=== PATIENT | female | born 1975 | race African-American/Black ===

== ENCOUNTER 2025-01-23 19:45 | Emergency (ER) | payer OTHER, SELFPAY ==
--- NOTE | 2025-01-23 19:49 | ED_ITS ---
HPI - Allergic Reaction General Stated complaint: Allergic to shellfish reaction Time Seen by Provider: 01/23/25 19:56 Mode of arrival: ambulatory Limitations: no limitations History of Present Illness HPI narrative: 49-year-old female presents with concern for allergic reaction. She reports around 430 this afternoon she had possible exposure to shellfish at a restaurant. She has an allergy to shellfish. She denies any history of sharon phylactic reaction to shellfish, but she was told her symptoms could worsen with further exposures. She reports she feels weird, her throat feels swollen and she feels dizzy. She denies any tongue swelling. She denies rash, nausea, vomiting, fever. Patient is in no distress. MD complaint: allergic reaction Related Data Home Medications ?Medication ?Instructions ?Recorded ?Confirmed ?Last Taken ?Type escitalopram oxalate 10 mg tablet mg 01/23/25 Unknown History Allergies Allergy/AdvReac Type Severity Reaction Status Date / Time No Known Allergies Allergy Verified 01/23/25 19:58 Review of Systems Review of Systems: CONSTITUTIONAL: Denies malaise, chills, sweats, or fever. EYES: Denies visual changes, redness, or discharge. ENT: Denies rhinorrhea, congestion, sore throat. Reports her throat feels swollen CARDIOVASCULAR: Denies chest pain, palpitations, or edema. RESPIRATORY: Denies cough or dyspnea. GASTROINTESTINAL: Denies nausea, vomiting, diarrhea SKIN: Denies rash or itching. NEUROLOGIC: Denies numbness, weakness, or headache. Reports dizziness All systems reviewed & are unremarkable except as noted in HPI and below PMFSH Comments At time of signature, agree with nursing past medical, surgical, social and family history. There is no relevant family history pertinent to the presenting complaint Exam Narrative: GENERAL: Well-appearing, well-nourished, and in no acute distress. HEAD: Normocephalic EYES: PERRLA, sclera clear, and EOMI. ENT: Nares clear, turbinates pink, no rhinorrhea or epistaxis. Mucous membranes moist. TM pearly reis with sharp light reflex bilaterally; no tragal tenderness. Oropharynx without erythema or lesions. No edema, angioedema noted. Tonsils not enlarged and without exudate. NECK: Supple. No lymphadenopathy. CHEST: No respiratory distress. Clear to auscultation. No bony deformities, no asymmetry. Speaks in full sentences. HEART: Regular rate and rhythm. No murmur heard. Normal peripheral pulses. SKIN: Warm, dry, no visible rash. NEURO: Alert and oriented x3. No focal deficits. Cranial nerves II through XII grossly intact PSYCH: Normal mood and affect Course Course Emergency Course: Patient is aware of diagnosis, understands and agrees to treatment plan. Anticipatory guidance given. Patient agrees to follow-up as directed and is aware of reasons to seek care at the emergency department. Portions of this record may have been created with voice recognition software Level of Care: Express Care Visit Vital Signs Vital signs: Reviewed. MDM - Allergic Reaction MDM Narrative Medical decision making narrative: No soft palate or uvula edema, no tongue or lip edema or other mucosal involvement, no respiratory compromise, no stridor, no wheezing, no wheezing, no history of syncope, no hypotension, no nausea, vomiting, or diarrhea. Critical Care Time Critical Care Time Critical Care Time: No Discharge Plan Discharge Clinical Impression: Allergy Patient Disposition: Home Condition: Stable Instructions: Food Allergy (ED) Additional Instructions: You may take 1-3 tabs of Benadryl (diphenhydramine) every 6 hours - this medicine may make you tired, so know how it affects you before you drive, work, make important decisions. You may also take a non-drowsy antihistamine such as Zyrtec or Citlalli once daily; you may double this dose for maximum effect. Medications that block stomach acid, such as Pepcid, also block histamine and can be helpful; take this once daily. If you have difficulty breathing, wheezing, swollen lips, swollen tongue, nausea, vomiting, diarrhea, pass out, have fever, itchy tongue, give difficulty swallowing please call 911 or go to the emergency room. Patient Language: Hungarian Follow-up/Referrals: UNKNOWN,DOCTOR [Non-Staff] - Time of Disposition: 20:03
--- OUTSIDE RECORDS SUMMARY | 2025-01-23 19:52 | XMS_ITS | Clinical Summary ---
Author Organization [facility] rofessional Office [place] Address [address] [place] [id number] Care Team Providers Care Chalk Cutter Name Role Phone Saud Valero MD Primary Care Provider [phone] Allergies Active Allergy Reactions Criticality Noted Date Comments Bupropion Other (See Comments) 03/29/2022 Horrible thoughts and made her feels more anxious Gluten Diarrhea,Other (See Comments) Low 09/25/2018 Gluten intolerance Latex Rash Medium 12/08/2022 Shellfish Containing Products Swelling,Anaphylaxis High 09/25/2018 Wheat Dextrin Abdominal Pain Low 09/23/2024 Medications albuterol sulfate HFA 90 mcg/actuation aerosol inhaler Take 2 Puffs by inhalation every 6 hours as needed for Shortness of Breath. 8.5 Gram 3 07/25/2023 6:09 PM SHRIMP PEELER 06/26/20 23 Active fexofenadine-pseu doephedrine SR 12 hour (JAMES-D) 60-120 mg tablet Take 1 Tablet by mouth 2 times daily as needed for Allergies or Congestion. 30 Tablet 09/23/19 25 Active fluticasone propionate (FLONASE) 50 mcg/spray [place], Suspension nasal inhaler Administer 2 Sprays in each nostril daily. 16 Gram 1 11/18/2024 6:52 PM CDT 09/23/19 25 Active escitalopram oxalate (LEXAPRO) 10 mg tablet Take 1 Tablet (10 mg) by mouth daily. 100 Tablet 3 01/16/2025 5:25 PM CDT 10/07/19 25 Active amphetamine-dextr oamphetamine (Adderall XR) 20 mg Extended Release 24 hour capsuleIndication s:Attention deficit hyperactivity disorder (ADHD), unspecified ADHD type Take 1 Capsule (20 mg) by mouth daily in the morning. Max Daily Amount: 20 mg 30 Capsule 11/18/2024 6:52 PM CDT 11/15/19 25 Active tirzepatide, weight loss, (Zepbound) 12.5 mg/0.5 mL Pen InjectorIndicatio ns:Obesity, unspecified class, unspecified obesity type, unspecified whether serious comorbidity present,ANTOINE (obstructive sleep apnea) Inject 0.5 mL (12.5 mg) by subcutaneous injection every 7 days. 2 mL 1 01/24/20 25 Active Active Problems Problem Noted Date Diagnosed Date Spinal stenosis 07/23/2022 Marijuana smoker 05/19/2022 ADD (attention deficit disorder) 03/30/2022 History of tobacco use 03/29/2022 Overview (03/29/2022): 20 years Smoking Pack per week, quit In 2017 History of prediabetes 03/29/2022 ANTOINE (obstructive sleep apnea) 03/29/2022 Perimenopausal symptom 03/29/2022 Environmental and seasonal allergies 03/29/2022 Iron deficiency anemia 03/29/2022 History of IBS 03/29/2022 Family history of autoimmune disorder 03/29/2022 Nausea with vomiting 02/15/2006 Toxic effect of venom(989.5) 04/10/2005 Cellulitis and abscess of leg, except foot 04/10 Obesity, unspecified 09/20/2004 Urinary tract infection, site not specified 08/09 Encounters Date Type Department Care Team Description 01/23/2025 2:00 PM CDT Office Visit [facility] [place] [id number] [facility] [address] [place] [phone] Ilene Cline FNP Other fatigue (Primary Dx); Elevated LDL cholesterol level; Obesity, unspecified class, unspecified obesity type, unspecified whether serious comorbidity present; ANTOINE (obstructive sleep apnea) 01/21/2025 External Device Data STL ABSTRACTION Provider, Abstract 11/14/2024 Refill [facility] [place] [address] [facility] [address] [place] [phone] Saud Valero MD Class 2 obesity with body mass index (BMI) of 38.0 to 38.9 in adult, unspecified obesity type, unspecified whether serious comorbidity present; Attention deficit hyperactivity disorder (ADHD), unspecified ADHD type 11/11/2024 External Device Data STL ABSTRACTION Provider, Abstract from Last 3 Months Immunizations Immunization Administration Dates Next Due (ADACEL/BOOSTRIX)(10 YR UP) TDAP VACCINE, 0.5ML, IM 04/30/2015 INFLUENZA VACCINE QUADRIVALENT 6 MOS UP PF IM Family History Medical History Relation Name Comments Diabetes Father Moiz Rodrigez Hypertension Mother Marguerite Gonzales Colon Cancer Neg Hx Relation Name Status Comments Father Moiz Rodrigez Alive Mother Marguerite Gonzales Alive Social History Tobacco Use Types Packs/Day Years Used Date Smoking Tobacco: Former Cigarettes 0.5 20 0 09/10/1996 - 09/10/2016 Cigars Passive Smoke Exposure: Never Smokeless Tobacco: Never Tobacco Cessation:Counseling Given: No Alcohol Use Standard Drinks/Week Comments Yes 2 (1 standard drink = 0.6 oz pur e alcohol) Comments No Sex and Gender Information Value Date Recorded Sex Assigned at Female 07/31/2023 11:17 AM SHRIMP PEELER Legal Sex Female 4:16 AM SHRIMP PEELER Gender Identity Female 07/31/2023 11:17 AM SHRIMP PEELER Sexual Orientation Not on file Last Filed Vital Signs Vital Sign Reading Time Taken Comments Blood Pressure 112/60 01/23/2025 2:15 PM CDT Pulse 77 01/23/2025 2:15 PM CDT Temperature 36.8 C (98.3 F) 01/23/2025 2:15 PM CDT Respiratory Rate 18 01/23/2025 2:15 PM CDT Oxygen Saturation 99% 01/23/2025 2:15 PM CDT Inhaled Oxygen Concentration - - Weight 98 kg (216 lb) 01/23/2025 2:15 PM CDT Height 160 cm (5' 3) 01/23/2025 2:15 PM CDT Body Mass Index 38.26 01/23/2025 2:15 PM CDT Plan of Treatment Health Maintenance Due Date Last Done Comments HEPATITIS B VACCINES (1 of 3 - 19+ 3-dose series) 1993 HPV/Cotest (21-29) 1995 CERVICAL CANCER SCREENING 2004 HPV/Cotest (30-65) 2004 PAP SMEAR 2004 FIT-DNA Q 3 years 2019 FIT/FOBT Q 1 year 2019 Preventative Visit- Commercial 07/09/2024 0 01/22/2024, 12/07/2022, 07/04/2022, Additional history exists ZOSTER VACCINE (1 of 2) 2024 INFLUENZA VACCINE (#1) 2025 04/30/2015 DTAP/TDAP/TD VACCINES (2 - T d or Tdap) 04/30/2025 04/30/2015 BREAST CANCER SCREENING 09/25/2025 09/26/19 25, 11/15/2023, 11/15/2023, Additional history exists Pre-Diabetes and Diabetes Screening 12/08/2025 12/08/2022, 07/04/2022 Flex Sig/CT Colonography Q 5 years 03/26/20282022, 03/26/2023 COLORECTAL SCREENING 10/26/2032 10/26/2022, 10/27/19 Colorectal Cancer Screening 10/26/2032 Procedures Procedure Name Priority Date/Time Associated Diagnosis Comments MAMMO 3D SHAUN DIAGNOSTIC BILAT W OR WO CAD Routine 09/25/2024 12:30 PM CDT Family history of breast cancer Breast cancer screening by mammogram Lump in upper inner quadrant of left breast FLEXIBLE SIGMOIDOSCOPY REPORT 03/26/2023 1:23 PM CDT HEMOGLOBIN A1C Routine 12/08/2022 1:01 PM CDT Prediabetes COLONOSCOPY REPORT 10/26/2022 2: 55 PM CDT from Last 3 Months or Most Recently Relevant to Health Maintenance Results * MAMMO 3D SHAUN DIAGNOSTIC BILAT W OR WO CAD (09/25/2024 12:30 PM CDT) Anatomical Region Laterality Modality Breast Bilateral Mammography 09/25/2024 12:3 0 PM CDT Impressions 09/25/2024 12:40 PM CDT IMPRESSION: 1. No suspicious findings are identified in either breast. Continued monthly breast examination and clinical follow-up is recommended. Any further management at this time should be based on clinical assessment. 2. Routine screening mammography is recommended in 1 year. OVERALL FINAL ASSESSMENT: BI-RADS CATEGORY 1 - Negative. The patient was notified of the findings and recommendations at the time of the examination. DICTATION LOCATION: [facility] Narrative 09/25/2024 12:40 PM CDT EXAMINATION: MAMMO 3D SHAUN DIAGNOSTIC BILAT W OR WO CAD DATE: 09/25/2024 12:30 PM HISTORY: 49-year-old woman comes in today for evaluation of a lump. The patient reports she can no longer feel the lump. The patient is currently asymptomatic. COMPARISON: Screening mammograms dated 11/15/2023, 11/10/2022. TECHNIQUE: Bilateral diagnostic mammogram was performed. Full field digital mammograms, and digital breast tomosynthesis with C-view performed. Examination is read in conjunction with computer aided detection. BREAST COMPOSITION: The breasts are heterogeneously dense, which may obscure small masses. FINDINGS: There is no new suspicious finding in either breast on mammogram. Computer aided detection was used in the interpretation of this examination. us Saud Valero MD MAMMO ORDERABLES Final Res ult * FLEXIBLE SIGMOIDOSCOPY REPORT (03/26/2023 1:23 PM CDT) Narrative Procedure Note Susan Ramirez MD - 03/26/2023 1:23 PM CDT [facility] Patient Name: Shimon Jesus Procedure Date: 03/26/2023 Date of : 1975 Attending MD: Susan Ramirez MD, Procedure: Flexible Sigmoidoscopy Indications: Follow up of lipoma Providers: Susan Ramirez MD Referring MD: Medicines: Monitored Anesthesia Care Complications: No immediate complications. Estimated blood loss: Minimal. Procedure: Informed consent was obtained for the procedure, including moderate sedation after risks were discussed. Based on the pre-procedure assessment, including review of the patient's medical history, medications, allergies, and review of systems, the patient was deemed to be an appropriate candidate for sedation. A timeout was performed. Continuous ECG monitoring, pulse oximetry, blood pressure monitoring, and direct observation were performed. The Colonoscope was introduced through the anus and advanced to the sigmoid colon. The flexible sigmoidoscopy was accomplished without difficulty. The patient tolerated the procedure fairly well. The quality of the bowel preparation was fair. Estimated Blood Loss: Estimated blood loss was minimal. Findings: The perianal and digital rectal examinations were normal. There was a small lipoma, 20 mm in diameter, in the proximal sigmoid colon. Biopsies were taken with a cold forceps for histology. Multiple small-mouthed diverticula were found in the sigmoid colon. Impression: - Preparation of the colon was fair. - Small lipoma in the proximal sigmoid colon. Biopsied. - Diverticulosis in the sigmoid colon. Recommendation: - Discharge patient to home (ambulatory). - High fiber diet. - Await pathology results. Susan Ramirez MD 03/26/2023 1:23:23 PM Number of Addenda: [address]; [place] [address] Susan Ramirez MD GI PROCEDURE ORDERA BLES Final Result * HEMOGLOBIN A1C (12/08/2022 1:01 PM CDT) HEMOGLOBIN A1C 5.6 <5.7 % 12/08/2022 2:02 PM CDT [facility] Instant Information [facility] EST. AVG GLUCOSE, A1C 114 mg/dL 12/08/2022 2:02 PM CDT [facility] Instant Information [facility] Blood Venipuncture / Unknown 12/08/2022 1:01 PM CDT 12/08/2022 1:39 PM CDT Narrative [facility] Instant Information [facility] - 12/08/2022 2:02 PM CDT HGB A1C INTERPRETATION NORMAL: <5.7% PRE-DIABETES: 5.7 - 6.4% DIABETES: 6.5% OR GREATER Saud Valero MD CHEMISTRY ORDERABLES Final Result [facility] Instant Information [facility]# [id number] [address] [place] [address] * COLONOSCOPY REPORT (10/26/2022 2:55 PM CDT) Narrative Procedure Note Zee Du MD - 10/26/2022 2:54 PM CDT [facility] Patient Name: Shimon Jesus Procedure Date: 10/26/2022 Date of : 1975 Attending MD: Zee Du MD, Procedure: Colonoscopy Indications: Iron deficiency anemia Providers: Zee Du MD Referring MD: Saud Valero MD Medicines: Monitored Anesthesia Care Complications: No immediate complications. Procedure: Informed consent was obtained for the procedure, including moderate sedation after risks were discussed. Based on the pre-procedure assessment, including review of the patient's medical history, medications, allergies, and review of systems, the patient was deemed to be an appropriate candidate for sedation. A timeout was performed. Continuous ECG monitoring, pulse oximetry, blood pressure monitoring, and direct observation were performed. The scope was introduced through the anus and advanced to the cecum, identified by appendiceal orifice and ileocecal valve. The colonoscopy was performed without difficulty. The patient tolerated the procedure well. The quality of the bowel preparation was good. Estimated Blood Loss: Estimated blood loss: none. Findings: A benign appearing submucosal mass (approximately 3-4 cm in diameter) was found in the sigmoid. Appearance most consistent with lipoma. There was a punctate area of ulceration at top of mass. Positive pillow sign. Biopsied multiple times but unable to definitively see fat cells/droplets. Biopsies were taken with a cold forceps for histology. Folds distal to benign appearing mass were tattooed x 2 with 1.4 mL of Spot (carbon black). Non-bleeding internal hemorrhoids were found during retroflexion and during digital exam. The hemorrhoids were mild. The exam was otherwise normal throughout the examined colon. Impression: - Benign-appearing submucosal tumor in the sigmoid colon. Tattooed. Biopsied. - Non-bleeding internal hemorrhoids. Recommendation: - Await pathology results. - If biopsies non-diagnostic, I will likely refer to colorectal surgery. It is possible that a small amount of chronic blood loss is occuring due to the size of this mass and small area of ucleration. - Repeat endoscopy timing pending path results. - Avoid NSAID medications. Zee Du MD 10/26/2022 2:53:57 PM This report has been signed electronically. Number of Addenda: [address]; [place] [address] Zee Du MD GI PROCEDURE ORDERABLES Final Result from Last 3 Months or Most Recently Relevant to Health Maintenance Insurance [employer] CHOICE POS II [employer]ET[employer] OPEN CHOICE PPO RX [employer] (INTERNAL) [facility] [employer] * Guarantor: [facility]LD [facility]-OCC MED [facility] (OM) Account Type Relation to Patient Date of Phone Billing Address Corporate Other [address] [facility] [address] [place] [address] Advance Directives For more information, please contact: [phone] * Full Code (Latest Code Status on File) Date Activated Date Inactivated Comments 03/26/2023 12:07 PM 03/26/2023 4:27 PM * Full Code Date Activated Date Inactivated Comments 01/01/2023 7:48 AM 01/02/2023 2:45 PM * Full Code Date Activated Date Inactivated Comments 01/01/2023 7:28 AM 01/01/2023 7:48 AM * Full Code Date Activated Date Inactivated Comments 10/26/2022 12:53 PM 10/26/2022 6:41 PM Care Teams Chalk Cutter Relationship Specialty [place] [id number] [facility] [address] [place] [id number] PCP - General Internal Medicine 03/29/22
--- OUTSIDE RECORDS SUMMARY | 2025-01-23 19:52 | XMS_ITS | Clinical Summary ---
Author Organization [facility] Address [facility] [place] [address] Care Team Providers Care Local Company Tanker Driver Name Role Phone Saud Valero MD Primary Care Provider [phone] [phone] Allergies Active Allergy Reactions Criticality Noted Date Comments Gluten Other (See comments) Low 11/29/2020 Gluten intolerance Other Anaphylaxis High 09/25/2018 Shellfish Containing Products Swelling Medium 11/29/2020 Medications cetirizine (ZyrTEC) 10 mg tablet TK 1 T PO D 0 Active aspirin 81 mg enteric coated tablet Take 81 mg by mouth daily Active albuterol HFA (PROVENTIL HFA,VENTOLIN HFA,PROAIR HFA) 90 mcg/actuation inhaler INHALE 2 PUFFS BY MOUTH EVERY 6 HOURS 1 Active fluticasone propionate (FLONASE) 50 mcg/actuation nasal spray Administer 2 sprays into each nostril daily 48 g 3 1 Active buPROPion SR (ZYBAN) 150 mg 12 hr tabletIndicatio ns:History of ADHD Take 1 tablet (150 mg total) by mouth 2 (two) times a day 60 tablet 1 2 Active escitalopram (LEXAPRO) 10 mg tabletIndicatio ns:Anxiety TAKE 1 TABLET(10 MG) BY MOUTH DAILY 90 tablet 2 2 Active metFORMIN (GLUCOPHAGE) 500 mg tablet Take 1 tablet (500 mg total) by mouth daily with breakfast 90 tablet 1 2 Active Ozempic 1 mg/dose (4 mg/3 mL) pen injector injection INJECT 0.5MG UNDER THE SKIN ONCE WEEKLY FOR 4 WEEKS, THEN INCREASE TO 1MG UNDER THE SKIN ONCE WEEKLY 9 mL [address] (PROTONIX) 40 mg EC tablet Take 1 tablet (40 mg total) by mouth daily 90 tablet 2 Active albuterol HFA (PROVENTIL HFA,VENTOLIN HFA,PROAIR HFA) 90 mcg/actuation inhaler Inhale 2 puffs 4 (four) times a day for 5 days ON SCHEDULE FOR FIRST 5 DAYS,AFTER 5 DAYS USE IT NEEDED FOR WHEEZING/ SHORTNESS OF BREATH 18 g 3 Active metoclopramide (REGLAN) 10 mg tablet Take 1 tablet (10 mg total) by mouth 2 (two) times a day 10 tablet [address] (PROTONIX) 40 mg EC tablet Take 1 tablet (40 mg total) by mouth daily 30 tablet 3 Active Active Problems Problem Noted Date Diagnosed Date Prediabetes 11/17/2021 Morbid obesity with BMI of 45.0-49.9, adult 0 09/2021 Abdominal pain 12/19/2020 Assessment & Plan (12/19/2020 3:03 PM CDT): Upper abdominal pain. Associated with tenderness. The patient recently had elevated amylase but lipase was not checked. The epigastric pain and tenderness may be due to uncontrolled esophageal reflux disease, gastric ulcer, duodenal ulcer, pancreatitis or less likely gallbladder disease. Odynophagia 12/17/2020 Assessment & Plan (12/19/2020 3:02 PM CDT): New. Symptoms worsening. May have esophageal ulcer, or opportunistic infection of the esophagus such as fungal or viral infection. Esophagogastroduodenoscopy is recommended and scheduled for direct visualization and to guide therapy. Dysphagia 11/29/2020 Assessment & Plan (12/19/2020 2:55 PM CDT): Recurrent. She recalls having endoscopy with dilation in the past. She may have Schatzki's ring, esophageal stricture or dysmotility. I will obtain and review previous endoscopy report from the outpatient surgery center. Esophagogastroduodenoscopy with possible dilation is scheduled. Gastroesophageal reflux disease 11/29/2020 Assessment & Plan (12/19/2020 2:55 PM CDT): Moderately severe symptoms. Symptoms are worsening despite the patient being on pantoprazole. Esophagogastroduodenoscopy is recommended. She was advised to continue pantoprazole and also follow anti-reflux measures. Anxiety 11/29/2020 History of COVID-19 11/29/2020 Palpitations 11/29/2020 Shortness of breath 11/29/2020 Obesity, unspecified 09/20/2004 Resolved Problems Problem Noted Date Diagnosed Date Resolved Date Cellulitis and abscess of leg, except foot 04/10/2005 11/29/2020 Toxic effect of venom 04/10/20052020 Immunizations Immunization Administration Dates Next Due Influenza, Quadrivalent, Spl it, Preservative Free, Intramuscular 04/30/2015 Influenza, Unspecified 05/04/2021(Deferred: Martha ent Refused) Tdap 04/30/2015 Surgical History Surgery Date Site/Laterality Comments OTHER SURGICAL HISTORY Fibroids: Mymomectomy ESOPHAGUS SURGERY 07/09/2006 - 07/08/2007 esophageal dilation UTERINE FIBROID SURGERY Medical History Medical History Date Comments Hx Other Medical Fibroids; Comme nts: YEB 01/26/2015 - Hx Other Medical prediab; Commen ts: YEB 01/26/2015 - Anxiety GERD (gastroesophageal reflux disease) Cellulitis and abscess of le g, except foot 04/10/2005 Toxic effect of venom 04/10/2005 Ovarian cyst Family History Medical History Relation Name Comments Alcohol abuse Father Diabetes type II Father Diabetes me llitus type 2; Hypertension Mother Lupus Sister Lupus erythemat osus; Relation Name Status Comments Father Alive Mother Alive Sister Alive Social History Tobacco Use Types Packs/Day Years Used Date Smoking Tobacco: Former Cigarettes 0.3 15.6 0 11/29/2000 - 2016 Smokeless Tobacco: Never Alcohol Use Standard Drinks/Week Comments Yes 0 (1 standard drink = 0.6 oz pur e alcohol) AUDIT-C Answer Date Recorded Q1: How often do you have a drink containing alc ohol? Monthly or less 12/21/2020 Q2: How many drinks containi ng alcohol do you have on a typical day when you are drinking? 1 or 2 12/21/2020 Q3: How often do you have si x or more drinks on one occasion? Never 12/21/2020 PHQ-2 Answer Date Recorded PHQ-2 Total Score (If total score is 3 or more points, staff should administer the PHQ-9) 0 11/02/2021 Personal Safety Answer Date Recorded Have you ever been in or are you currently in a harmful physical or emotional relationship or is someone making you feel afraid or unsafe? Denies 07/06/2023 Comments No Sex and Gender Information Value Date Recorded Sex Assigned at Not on file Legal Sex Female 9:15 AM LIFE CARE PLANNER Gender Identity Not on file Sexual Orientation Not on file Obstetrics History Last Filed Vital Signs Vital Sign Reading Time Taken Comments Blood Pressure 126/75 07/07/2023 4:00 AM LIFE CARE PLANNER Pulse 65 07/07/2023 5:30 AM LIFE CARE PLANNER Temperature 36.2 C (97.2 F) 07/06/2023 8:19 PM LIFE CARE PLANNER Respiratory Rate 16 07/07/2023 4:00 AM LIFE CARE PLANNER Oxygen Saturation 100% 07/07/2023 5:30 AM LIFE CARE PLANNER Inhaled Oxygen Concentration - - Weight 107 kg (236 lb) 06/29/2022 10:04 AM LIFE CARE PLANNER Height 160 cm (5' 3) 04/27/2022 9:25 AM CDT Body Mass Index 41.81 04/27/2022 9:25 AM CDT Plan of Treatment Health Maintenance Due Date Last Done Comments Cervical Cancer Screening 1974 Colon Cancer Screening-Colonoscopy 1975 Hepatitis C Screening 1974 Hepatitis B Screening 1992 Regular Well Visit/Exam 18-64 05/03/2022 05/03/2021 Depression Screening 11/02/2022 11/02/2021, 07/11/2021, 12/27/2020, Additional history exists Zoster Vaccine (1 of 2) 2024 Breast Cancer Screening-Mammogram 11/14/2024 11/15/2023, 11/10/2022, 11/10/2022, Additional history exists Influenza Vaccine (#1) 2025 04/30/2015 DTaP/Tdap/Td Vaccine (2 - Td or Tdap) 04/30/2025 04/30/2015 Pneumococcal vaccine <65 Aged Out No longer eligible based on patient's age to complete this topic Procedures Procedure Name Priority Date/Time Associated Diagnosis Comments SCREENING MAMMOGRAM BILATERAL W STEWART Schedule Routine, Read Routine (OP Routine) 11/15/2023 9:30 AM CDT Screening mammogram for breast cancer from Last 3 Months or Most Recently Relevant to Health Maintenance Results * Screening Mammogram Bilateral W Stewart (11/15/2023 9:30 AM CDT) Anatomical Region Laterality Modality Breast Bilateral Mammography Narrative 11/15/2023 4:04 PM CDT Examination: Screening Mammogram Bilateral W Stewart: 11/15/23 Clinical: Screening mammogram for breast cancer. Prior Study Comparisons: Comparison was made to the prior available relevant studies at the time of interpretation. Findings: Bilateral No significant masses, malignant type calcifications, skin thickening, nipple retraction, or significant lymphadenopathy is noted in either breast. The CAD review showed no significant findings. The breasts are heterogeneously dense, which may obscure small masses. The patient will be notified of results by letter. Impression: BI-RADS ATLAS category (overall): 2 - Benign There is no mammographic evidence of malignancy. Routine Screening Mammogram in 1 Yr is recommended for bilateral Overall Assessment: 2 - Benign Saud Valero MD IMG MAMMO PROCEDURES Thao l Result from Last 3 Months or Most Recently Relevant to Health Maintenance Insurance [facility] HMO/POS [facility] [place] [address] [id number] [employer] HMO/[place] [facility] [id number] Care Teams Local Company Tanker Driver Relationship Specialty [place] [address] [address] PCP - General Internal Medicine 11/03/22
--- OUTSIDE RECORDS SUMMARY | 2025-01-23 19:52 | XMS_ITS ---
Author Organization [facility] Address [address] [place] [address] Care Team Providers Care Geomagnetician Name Role Phone Lili Orellana Primary Care Provider Michael Carpenter [phone] REASON FOR VISIT Swollen lymph nodes, weakness, exhaustion, stomach pain Encounters Encounter Location Date Provider Diagnosis [place], [place] [address] [place] [address] 08/09/2023 Michael Carpenter Plan Of Treatment No Information Progress Notes * YONNY MCDONALD LDOB: [birth year] (49 yo F)Acc No.[id number]:08/09/2023 Progress Note - Acute Patient: YONNY TUCKER Appointment Provider: ROSEANNE Gimenez :1975 A ge:47 Y S ex:Female Date:08/09/2023 External Visit ID:[id number] Address:[address] [place], [place] [id number] Pcp:Lili Orellana Subjective: * Chief Complaints: * 1 . Swollen lymph nodes, weakness, exhaustion, stomach pain. * Active Problem List J30.9 Allergic rhinitis, u nspecified seasonality, unspecified trigger Modified On:11/22/2023W/U Status:confirmed E66.9 Obesity (BMI 30.0-34 .9) Modified On:11/22/2023W/U Status:confirmed * Medical History: Objective: * Vitals: Assessment: Plan: * Treatment: * * Electronic signature of ROSEANNE Gabriel on 01/23/2025 at 04:25 PM CDT Sign off status: Pending * Appointment Provider: ROSEANNE Gimenez Date: 0 08/09/2023 Generated for José Miguel jimenez/Kyler/Ronan on: 0 01/23/2025 04:25 PM CDT
--- OUTSIDE RECORDS SUMMARY | 2025-01-23 19:52 | XMS_ITS | Encounter Summary ---
Author Organization [facility] Address [address] [place] [address] Care Team Providers Care Cutting Table Operator Name Role Phone Saud Valero MD Primary Care Provider [phone]- [phone] Encounter Details Date Type Department Care Team (Late st Contact Info) Description 06/18/2006 Orders Only [facility] Internal Medicine Medical [place] A [facility] [address] [address] Jonathan Mercedes MD [address] [facility] [address] [place], [place] [id number] Social History Tobacco Use Types Packs/Day Years Used Date Smoking Tobacco: Never Assessed Comments Unknown Sex and Gender Information Value Date Recorded Sex Assigned at Female 07/31/2023 11:17 AM ADMINISTRATIVE SECRETARY Legal Sex Female 4:16 AM ADMINISTRATIVE SECRETARY Gender Identity Female 07/31/2023 11:17 AM ADMINISTRATIVE SECRETARY Sexual Orientation Not on file documented as of this encounter Progress Notes * Loy Mercedes MD - 04/22/2008 2:30 AM CDT TIME:12:50 pm PATIENT`S HOME PHONE: PATIENT`S WORK PHONE: PATIENT`S INSURANCE: [facility] [email or web address] [facility] WHO TOOK THE CALL: Ilene Harris M GENERAL INFORMATION PATIENT STATUS: Established Patient. ALTERNATIVE PHONE NUMBER: [phone] WHO CALLED: Patient called. CURRENT ALLERGY LIST: NKDA PHARMACY NUMBER: [phone] PROBLEMS: CONGESTION: Patient complains of sinus congestion. The symptoms began approximately 6 days ago. yellow-green sinus drainage......sinus pressure.....facial pain.........been taking sudafed and Nyquil........cough drops and Chloraseptic COUGH:Patient complains of cough. The symptoms began approximately 4 days ago. coughing up yellow-green phlegm..........little sob........ EARACHE: Patient complains of earache. The symptoms began approximately 3 days ago. clogged ears SORE THROAT: Patient complains of sore throat. The sore throat began approximately 4 days ago. Would like cough syrup if possible?? Would like antibiotic also, if recommended SECTION 1: DOCTOR`S RESPONSE: pravin 06/18/06 at 01:35 pm MEDICATIONS: Call in to Pharmacy AMOXICILLIN ORAL TABLET 500 MG, 1 Three Times A Day, 30 Dispensed, status: NEW PRESCRIPTION, 06/18/2006. HISTUSS HC ORAL LIQUID 30-2-5 MG/5ML FLUIDOUNCES, 5-10cc q6hr prn, 6 Dispensed, status: NEW PRESCRIPTION, 06/18/2006. FINAL ACTION: maura 06/18/06 at 01:42 pm Spoke with patient 06/18/06 at 01:42 pm. Called pharmacy at 06/18/06 at 01:42 pm. documented in this encounter Plan of Treatment Not on file documented as of this encounter Visit Diagnoses Not on filedocumented in this encounter Care Teams Cutting Table Operator Relationship Specialty [place] [address] [facility] [address] [place] [address] PCP - General Internal Medicine 03/29/22 documented as of this encounter
--- OUTSIDE RECORDS SUMMARY | 2025-01-23 19:52 | XMS_ITS | Encounter Summary ---
Author Organization [facility] Address [address] [place] [address] Care Team Providers Care Bag Machine Adjuster Name Role Phone Saud Valero MD Primary Care Provider [phone]- [phone] Encounter Details Date Type Department Care Team (Late st Contact Info) Description 09/20/2004 Outpatient Historical [facility] Internal Medicine Medical [place] A [facility] [address] [address] Jonathan Mercedes MD [address] [facility] [address] [place] [address] Social History Tobacco Use Types Packs/Day Years Used Date Smoking Tobacco: Never Assessed Comments Unknown Sex and Gender Information Value Date Recorded Sex Assigned at Female 07/31/2023 11:17 AM AUTOMOBILE BRAKES BONDER Legal Sex Female 4:16 AM AUTOMOBILE BRAKES BONDER Gender Identity Female 07/31/2023 11:17 AM AUTOMOBILE BRAKES BONDER Sexual Orientation Not on file documented as of this encounter Last Filed Vital Signs Vital Sign Reading Time Taken Comments Blood Pressure 102/74 09/20/2004 1:30 PM AUTOMOBILE BRAKES BONDER Pulse 84 09/20/2004 1:30 PM AUTOMOBILE BRAKES BONDER Temperature 36.4 C (97.5 F) 09/20/2004 1:30 PM AUTOMOBILE BRAKES BONDER Respiratory Rate 16 09/20/2004 1:30 PM AUTOMOBILE BRAKES BONDER Oxygen Saturation - - Inhaled Oxygen Concentration - - Weight 98.9 kg (218 lb) 09/20/2004 1:30 PM AUTOMOBILE BRAKES BONDER Height 160 cm (5' 3) 09/20/2004 1:30 PM AUTOMOBILE BRAKES BONDER Body Mass Index 38.62 09/20/2004 1:30 PM AUTOMOBILE BRAKES BONDER documented in this encounter Plan of Treatment Not on file documented as of this encounter Visit Diagnoses Not on filedocumented in this encounter Care Teams Bag Machine Adjuster Relationship Specialty [place] [address] [facility] [address] [place] [address] PCP - General Internal Medicine 03/29/22 documented as of this encounter
--- OUTSIDE RECORDS SUMMARY | 2025-01-23 19:52 | XMS_ITS | Encounter Summary ---
Author Organization [facility] Address [address] [place] [address] Care Team Providers Care Executive Director Of Marketing Name Role Phone Saud Valero MD Primary Care Provider +1- [phone] Encounter Details Date Type Department Care Team (Late st Contact Info) Description 08/24/2004 Outpatient Historical [facility] Internal Medicine Medical [place] A [place] [address] [facility] [address] [address] Jonathan Mercedes MD [address] [facility] [address] [place] [address] Social History Tobacco Use Types Packs/Day Years Used Date Smoking Tobacco: Never Assessed Comments Unknown Sex and Gender Information Value Date Recorded Sex Assigned at Female 07/31/2023 11:17 AM BOAT PULLER Legal Sex Female 4:16 AM BOAT PULLER Gender Identity Female 07/31/2023 11:17 AM BOAT PULLER Sexual Orientation Not on file documented as of this encounter Last Filed Vital Signs Vital Sign Reading Time Taken Comments Blood Pressure - - Pulse - - Temperature 36.5 C (97.7 F) 08/24/2004 11:20 AM BOAT PULLER Respiratory Rate - - Oxygen Saturation - - Inhaled Oxygen Concentration - - Weight - - Height - - Body Mass Index - - documented in this encounter Plan of Treatment Not on file documented as of this encounter Visit Diagnoses Not on filedocumented in this encounter Care Teams Executive Director Of Marketing Relationship Specialty [place] [address] [facility] [address] [place] [address] PCP - General Internal Medicine 03/29/22 documented as of this encounter
--- OUTSIDE RECORDS SUMMARY | 2025-01-23 19:52 | XMS_ITS | Encounter Summary ---
Author Organization [facility] Address [address] [place] [address] Care Team Providers Care Tattoo Artist Name Role Phone Kulwant Henry DO Primary Care Provider [phone] Encounter Details Date Type Department Care Team (Late st Contact Info) Description 05/06/2020 SS Outpatient Visit EXTERNAL NON-[facility] [place] [place] [address] [place] [id number] Social History Tobacco Use Types Packs/Day Years Used Date Smoking Tobacco: Former Smokeless Tobacco: Never Alcohol Use Standard Drinks/Week Comments Yes 0 (1 standard drink = 0.6 oz pur e alcohol) Comments No Sex and Gender Information Value Date Recorded Sex Assigned at Not on file Legal Sex Female 4:42 PM BRICK AND BLOCKER AID LABOR Gender Identity Not on file Sexual Orientation Not on file COVID-19 Exposure Response Date Recorded In the last month, have you been in contact with someone who was confirmed or suspected to have Coronavirus / COVID-19? No / Unsure 04/23/2020 12:57 PM CDT documented as of this encounter Plan of Treatment Not on file documented as of this encounter Visit Diagnoses Not on filedocumented in this encounter Care Teams Tattoo Artist Relationship Specialty [place] [address] [address] [place] [id number] PCP - General Family Medicine 04/30/15 documented as of this encounter
--- OUTSIDE RECORDS SUMMARY | 2025-01-23 19:52 | XMS_ITS | Encounter Summary ---
Author Organization [facility] Address [address] [place] [address] Care Team Providers Care Gis Web Developer Name Role Phone Saud Valero MD Primary Care Provider [phone]- [phone] Reason for Visit * Reason Comments Information Encounter Details Date Type Department Care Team (Late st Contact Info) Description 01/04/2024 Telephone [facility] Internal Medicine [place] [address] [place] [address] [place] [address] [place] [address] Information Social History Tobacco Use Types Packs/Day Years Used Date Smoking Tobacco: Former Cigarettes 0.5 20 0 09/10/1996 - 09/10/2016 Cigars Passive Smoke Exposure: Never Smokeless Tobacco: Never Alcohol Use Standard Drinks/Week Comments Yes 2 (1 standard drink = 0.6 oz pur e alcohol) Comments No Sex and Gender Information Value Date Recorded Sex Assigned at Female 07/31/2023 11:17 AM GALLERY ASSISTANT Legal Sex Female 4:16 AM GALLERY ASSISTANT Gender Identity Female 07/31/2023 11:17 AM GALLERY ASSISTANT Sexual Orientation Not on file documented as of this encounter Miscellaneous Notes * Telephone Encounter - Concetta Colmenares - 01/04/2024 9:04 AM CDT Copied from [facility] #[id number]. Topic: Reschedule/Cancel Appointment/Late Arrival >> Jan 04, 2024 9:02 AM Concetta Meza wrote: Caller is calling to inform clinic of late arrival. Call Notes: Patient is calling to left office know she will arrive @9:17am documented in this encounter Plan of Treatment Not on file documented as of this encounter Visit Diagnoses Not on filedocumented in this encounter Care Teams Gis Web Developer Relationship Specialty [place] [address] [facility] [address] [phone] PCP - General Internal Medicine 03/29/22 documented as of this encounter
--- OUTSIDE RECORDS SUMMARY | 2025-01-23 19:52 | XMS_ITS | Encounter Summary ---
Author Organization [facility] Address [address] [place] [address] Care Team Providers Care Facilities Specialist Name Role Phone Saud Valero MD Primary Care Provider [phone]- [phone] Encounter Details Date Type Department Care Team (Late st Contact Info) Description 02/15/2006 Orders Only [facility] Internal Medicine Medical [place] A [place] [address] [address] Teresita Ge MD [facility] [facility] [address] [place] [address] Social History Tobacco Use Types Packs/Day Years Used Date Smoking Tobacco: Never Assessed Comments Unknown Sex and Gender Information Value Date Recorded Sex Assigned at Female 07/31/2023 11:17 AM INSIDE SALES ASSISTANT Legal Sex Female 4:16 AM INSIDE SALES ASSISTANT Gender Identity Female 07/31/2023 11:17 AM INSIDE SALES ASSISTANT Sexual Orientation Not on file documented as of this encounter Progress Notes * Teresita Ge MD - 04/16/2008 9:43 PM CDT BLOOD PRESSURE: 116/60 Right Arm Sitting PULSE: 80 Right Radial, Regular TEMPERATURE: 98??f Oral WEIGHT: 224lbs NURSE NAME: Shaina Jade ALLERGIES: No known drug allergies. MEDICATIONS: Medication list current. CHIEF COMPLAINT NAUSEA HISTORY: HISTORY OF PRESENT ILLNESS: NAUSEA: The symptoms began approximately 3 weeks ago. The frequency is variable. The patient has symptoms of vomiting. Had diarrhea only 1-2 days intermittently during this. Does also have burning inchest. Started when power was out and had chicken from crockpot but no one else got sick. Also was in area that they had to boil water which she did. Took test which was negative. Better when tried friend's prilosec CURRENT PROBLEM LIST: 278.00 OBESITY UNSPECIFIED 599.0 URINARY TRACT INFECTION 682.6 OTHER CELLULITIS AND ABSCESS 989.5 TOXIC EFFECT OF OTHER SUBSTANCES, CHIEFLY NONMEDIC CURRENT MEDICATION LIST: CONNIE 28 ORAL TABLET 3-0.03 MG, 1 Every Day CURRENT ALLERGY LIST: NKDA ROS: GENERAL: No fever. GI: HAS INTERMITTENT DIARRHEA, no complaints of abdominal pain. PHYSICAL EXAMINATION: CONSTITUTIONAL: GENERAL APPEARANCE: Healthy appearing patient in no distress. NECK/THYROID: Trachea midline. No thyroid enlargement, tenderness, or mass. No supraclavicular or cervical adenopathy. RESPIRATORY: Clear to auscultation and percussion. Normal respiratory effort. CARDIOVASCULAR: CARDIAC: Regular rhythm. No murmurs, rubs, or gallops. ARTERIAL: Aortic pulses of normal amplitude with no bruits. EDEMA/VARICOSITIES OF EXTREMITIES: No edema or varicosities. GASTROINTESTINAL: ABDOMEN: TENDERNESS NOTED IN THE EPIGASTRIC AREA, no right upper quadrant tenderness. LIVER/SPLEEN/KIDNEY: No hepatosplenomegaly, tenderness or nodularity. Kidneys not palpable. PSYCHIATRIC: Judgment appropriate. Oriented. Normal memory. Mood and affect appropriate. ASSESSMENT/PLAN: 787.01-NAUSEA AND VOMITING MEDICATIONS: OMEPRAZOLE ORAL CAPSULE DELAYED RELEASE 20 MG, 1 Every Day, 90 Dispensed, 3 Fills, status: NEW PRESCRIPTION, 02/15/2006. LAB ORDERS: Order number: [id number] Test Ordered: HEPATIC FUNCTION PANEL 1293 Order number: [id number] Test Ordered: LIPASE LEVEL 1582 Electronically Signed by: Teresita Ge MD on February documented in this encounter Plan of Treatment Not on file documented as of this encounter Visit Diagnoses Not on filedocumented in this encounter Care Teams Facilities Specialist Relationship Specialty [place] [address] [facility] [address] [place] [address] PCP - General Internal Medicine 03/29/22 documented as of this encounter
--- OUTSIDE RECORDS SUMMARY | 2025-01-23 19:52 | XMS_ITS | Encounter Summary ---
Author Organization [facility] Address [address] [place] [address] Care Team Providers Care Coke Wheeler Name Role Phone Saud Valero MD Primary Care Provider +1- [phone] Reason for Visit * Reason Comments Needs Orders Written Encounter Details Date Type Department Care Team (Late st Contact Info) Description 09/23/2024 Telephone [facility] Internal Medicine Carmen Myron [address] [place] [address] [place] [address] [place] [address] Needs Orders Written Social History Tobacco Use Types Packs/Day Years Used Date Smoking Tobacco: Former Cigarettes 0.5 20 0 09/10/1996 - 09/10/2016 Cigars Passive Smoke Exposure: Never Smokeless Tobacco: Never Alcohol Use Standard Drinks/Week Comments Yes 2 (1 standard drink = 0.6 oz pur e alcohol) Comments No Sex and Gender Information Value Date Recorded Sex Assigned at Female 07/31/2023 11:17 AM LENS POLISHER Legal Sex Female 4:16 AM LENS POLISHER Gender Identity Female 07/31/2023 11:17 AM LENS POLISHER Sexual Orientation Not on file documented as of this encounter Miscellaneous Notes * Telephone Encounter - Nayeli Messina - 09/23/2024 3:00 PM CDT Copied from [facility] #[id number]. Topic: CPA Information Request - Order or Referral Request >> Sep 23, 2024 2:46 PM Nayeli Kendall wrote: Caller Name: Shimon Jesus Patient/Caregiver Callback Number: Telephone Information: Call Notes: The referral that was sent over to [facility], needs to put in system differently as an error code popped up upon attempting to schedule. Caller is requesting: New Referral Has the patient been seen for this issue? YES Requests Referral to Specialty: Mammogram Diagnostic Reason for referral (Symptoms / Diagnosis): Lump in middle of chest Previously discussed with provider? Yes Is patient requesting a certain provider or facility? No Provider / Facility contact information: Unknown Date of Service: N/A documented in this encounter Plan of Treatment Not on file documented as of this encounter Visit Diagnoses Not on filedocumented in this encounter Care Teams Coke Wheeler Relationship Specialty [place] [address] [facility] [address] [place] [phone] PCP - General Internal Medicine 03/29/22 documented as of this encounter
--- OUTSIDE RECORDS SUMMARY | 2025-01-23 19:52 | XMS_ITS | Encounter Summary ---
Author Organization [facility] Address [address] [place] [address] Care Team Providers Care Brood Hatchery Manager Name Role Phone Saud Valero MD Primary Care Provider +1- [phone] Encounter Details Date Type Department Care Team (Late st Contact Info) Description 01/21/2025 External Device Data [facility] ABSTRACTION Provider, Abstract NO ADDRESS ON FILE Social History Tobacco Use Types Packs/Day Years Used Date Smoking Tobacco: Former Cigarettes 0.5 20 0 09/10/1996 - 09/10/2016 Cigars Passive Smoke Exposure: Never Smokeless Tobacco: Never Alcohol Use Standard Drinks/Week Comments Yes 2 (1 standard drink = 0.6 oz pur e alcohol) Comments No Sex and Gender Information Value Date Recorded Sex Assigned at Female 07/31/2023 11:17 AM AFFIRMATIVE ACTION OFFICER Legal Sex Female 4:16 AM AFFIRMATIVE ACTION OFFICER Gender Identity Female 07/31/2023 11:17 AM AFFIRMATIVE ACTION OFFICER Sexual Orientation Not on file documented as of this encounter Plan of Treatment Not on file documented as of this encounter Visit Diagnoses Not on filedocumented in this encounter Care Teams Brood Hatchery Manager Relationship Specialty [place] [address] [facility] [address] [place] [phone] PCP - General Internal Medicine 03/29/22 documented as of this encounter
--- OUTSIDE RECORDS SUMMARY | 2025-01-23 19:52 | XMS_ITS | Encounter Summary ---
Author Organization [facility] Address [address] [place] [address] Care Team Providers Care Heel Curver Name Role Phone Saud Valero MD Primary Care Provider +1- [phone] Encounter Details Date Type Department Care Team (Late st Contact Info) Description 04/19/2005 Outpatient Historical [facility] Internal Medicine Medical [place] A [facility] [address] [address] [address] Teresita Ge MD [address] [place] [address] [address] [place] [address] Social History Tobacco Use Types Packs/Day Years Used Date Smoking Tobacco: Never Assessed Comments Unknown Sex and Gender Information Value Date Recorded Sex Assigned at Female 07/31/2023 11:17 AM MOLDING ENGINEER Legal Sex Female 4:16 AM MOLDING ENGINEER Gender Identity Female 07/31/2023 11:17 AM MOLDING ENGINEER Sexual Orientation Not on file documented as of this encounter Last Filed Vital Signs Vital Sign Reading Time Taken Comments Blood Pressure 120/70 04/19/2005 9:15 AM CDT Pulse 62 04/19/2005 9:15 AM CDT Temperature - - Respiratory Rate 18 04/19/2005 9:15 AM CDT Oxygen Saturation - - Inhaled Oxygen Concentration - - Weight 101.6 kg (224 lb) 04/19/2005 9:15 AM CDT Height 157.5 cm (5' 2) 04/19/2005 9:15 AM CDT Body Mass Index 40.97 04/19/2005 9:15 AM CDT documented in this encounter Plan of Treatment Not on file documented as of this encounter Visit Diagnoses Not on filedocumented in this encounter Care Teams Heel Curver Relationship Specialty [place] [address] [facility] [address] [place] [address] PCP - General Internal Medicine 03/29/22 documented as of this encounter
--- OUTSIDE RECORDS SUMMARY | 2025-01-23 19:52 | XMS_ITS | Encounter Summary ---
Author Organization [facility] Address [address] [place] [address] Care Team Providers Care Service Center Appraiser Name Role Phone Saud Valero MD Primary Care Provider +1- [phone] Encounter Details Date Type Department Care Team (Latest Contact Info) Description 02/22/2006 Outpatient Historical [facility] Internal Medicine Medical [place] A [facility] [address] [facility] [address] [address] Teresita Ge MD [address] [place] [address] [address] [place] [address] Nausea with Vomiting (Primary Dx) Social History Tobacco Use Types Packs/Day Years Used Date Smoking Tobacco: Never Assessed Comments Unknown Sex and Gender Information Value Date Recorded Sex Assigned at Female 07/31/2023 11:17 AM COLLABORATIVE TEACHER Legal Sex Female 4:16 AM COLLABORATIVE TEACHER Gender Identity Female 07/31/2023 11:17 AM COLLABORATIVE TEACHER Sexual Orientation Not on file documented as of this encounter Plan of Treatment Not on file documented as of this encounter Procedures Procedure Name Priority Date/Time Associated Diagnosis Comments LIPASE Routine 02/22/2006 2:39 PM CDT HEPATIC FUNCTION PANEL Routine 02/22/2006 2:39 PM CDT documented in this encounter Results * (ABNORMAL) LIPASE (02/22/2006 2:39 PM CDT) LIPASE 65(H) 13 - 60 U/L INTERFAC E SYSTEM 02/22/2006 2:39 PM CDT Teresita Ge MD CHEMISTRY ORDERABLES Final R esult Performing Organization Address City/[facility] de Phone Number INTERFACE SYSTEM Refer to clinic/hospital department * HEPATIC FUNCTION PANEL (02/22/2006 2:39 PM CDT) ALKALINE PHOSPHATASE 65 35 - 104 U/L INTERFACE SYSTEM AST 18 12 - 32 U/L INTERFACE SYSTEM ALT 13 0 - 31 U/L INTERFACE SYSTEM TOTAL PROTEIN 7.9 6.3 - 8.6 g/dL INTERFACE SYSTEM ALBUMIN 3.9 3.4 - 4.8 g/dL INTERFACE SYSTEM BILIRUBIN TOTAL 0.2 0.2 - 1.0 mg/dL INTERFACE SYSTEM BILIRUBIN DIRECT 0.1 0.0 - 0.3 mg/dL INTERFACE SYSTEM 02/22/2006 2:39 PM CDT Teresita Ge MD CHEMISTRY ORDERABLES Final R esult Performing Organization Address [facility] Phone Number INTERFACE SYSTEM Refer to clinic/hospital department documented in this encounter Visit Diagnoses Diagnosis Nausea with vomiting- Primary documented in this encounter Care Teams Service Center Appraiser Relationship Specialty [place] [address] [facility] [address] [place] [phone] PCP - General Internal Medicine 03/29/22 documented as of this encounter
--- OUTSIDE RECORDS SUMMARY | 2025-01-23 19:52 | XMS_ITS | Encounter Summary ---
Author Organization [facility] Address [address] [place] [address] Care Team Providers Care Manager Pharmaceutical Name Role Phone Saud Valero MD Primary Care Provider +1- [phone] Reason for Visit * Reason Comments Medication Assistance Encounter Details Date Type Department Care Team (Late st Contact Info) Description 10/05/2023 Telephone [facility] Internal Medicine Carmen Myron [address] [place] [address] [place] [address] [place] [address] Medication Assistance Social History Tobacco Use Types Packs/Day Years Used Date Smoking Tobacco: Former Cigarettes 0.5 20 0 09/10/1996 - 09/10/2016 Cigars Passive Smoke Exposure: Never Smokeless Tobacco: Never Alcohol Use Standard Drinks/Week Comments Yes 2 (1 standard drink = 0.6 oz pur e alcohol) Comments No Sex and Gender Information Value Date Recorded Sex Assigned at Female 07/31/2023 11:17 AM ONLINE MARKETING DIRECTOR Legal Sex Female 4:16 AM ONLINE MARKETING DIRECTOR Gender Identity Female 07/31/2023 11:17 AM ONLINE MARKETING DIRECTOR Sexual Orientation Not on file documented as of this encounter Miscellaneous Notes * Telephone Encounter - Saud Valero MD - 10/05/2023 1:21 PM CDT Prescription was sent via e-scrip; also discussed with pharmacist at [facility] who took down the prescription as well * Telephone Encounter - Candy Oliveira - 10/05/2023 12:24 PM CDT Copied from [facility] #[id number]. Topic: Medication Request >> Oct 05, 2023 12:14 PM Candy Lowe wrote: Caller is requesting: Medication - New Request (Not Currently Taking) Medication (Ask patient/caregiver to spell if possible): Zepbound 15mg Preferred Pharmacy: [id number] [address] [place] [address] [address] Patient/Caregiver Callback Number: [phone] (home) Call Notes: Will need anew script sent to the pharmacy for medication. This the third time the wrong medication have been sent. Please advise.... documented in this encounter Plan of Treatment Not on file documented as of this encounter Visit Diagnoses Not on filedocumented in this encounter Care Teams Manager Pharmaceutical Relationship Specialty [place] [address] [facility] [address] [place] [phone] PCP - General Internal Medicine 03/29/22 documented as of this encounter
--- OUTSIDE RECORDS SUMMARY | 2025-01-23 19:52 | XMS_ITS | Encounter Summary ---
Author Organization [facility] Address [address] [place] [address] Care Team Providers Care Systems Coordinator Name Role Phone Sadu Valero MD Primary Care Provider +1- [phone] Encounter Details Date Type Department Care Team (Latest Contact Info) Description 11/27/2007 Outpatient Historical [facility] [address] Yunior Craig MD NO ADDRESS ON FILE Leiomyoma of Uterus, Unspecified Social History Tobacco Use Types Packs/Day Years Used Date Smoking Tobacco: Never Assessed Comments Unknown Sex and Gender Information Value Date Recorded Sex Assigned at Female 07/31/2023 11:17 AM HAND LAUNDERER Legal Sex Female 4:16 AM HAND LAUNDERER Gender Identity Female 07/31/2023 11:17 AM HAND LAUNDERER Sexual Orientation Not on file documented as of this encounter Plan of Treatment Not on file documented as of this encounter Procedures Procedure Name Priority Date/Time Associated Diagnosis Comments HEMOGLOBIN AND HEMATOCRIT Stat 11/27/2007 6:10 PM CDT HEMOGLOBIN AND HEMATOCRIT Stat 11/27/2007 1:20 PM CDT documented in this encounter Results * (ABNORMAL) HEMOGLOBIN AND HEMATOCRIT (11/27/2007 6:10 PM CDT) HEMOGLOBIN 10.9(L) 11.8 - 14.8 g/dL [facility] HEMATOCRIT 34.2(L) 35.5 - 44.0 % [facility] Blood specimen (specimen) 11/27/2007 6:10 PM CDT 11/27/2007 7:20 PM CDT Narrative INTERFACE SYSTEM - 11/27/2007 8:27 PM CDT results faxed, attempted to call 11/27/07 7:39 PM results called to Yaneth Mcbride us Yunior Craig MD HEMATOLOGY ORDERABLES Edite d Performing Organization Address [facility] Co de Phone Number INTERFACE SYSTEM Refer to clinic/hospital department [facility] CLIA# [id number] [address] [place] [address] * (ABNORMAL) HEMOGLOBIN AND HEMATOCRIT (11/27/2007 1:20 PM CDT) HEMOGLOBIN 11.4(L) 11.8 - 14.8 g/dL [facility] HEMATOCRIT 35.9 35.5 - 44.0 % [facility] Blood specimen (specimen) 11/27/2007 1:20 PM CDT 11/27/2007 2:25 PM CDT Narrative [facility] - 11/27/2007 2:31 PM CDT FAX,[phone] [id number] us Yunior Craig MD HEMATOLOGY ORDERABLES Final Result Performing Organization Address [facility] de Phone Number [facility] CLIA# [id number] [address] [place] [address] documented in this encounter Visit Diagnoses Diagnosis Leiomyoma of uterus, unspecified documented in this encounter Care Teams Systems Coordinator Relationship Specialty [place] [address] [place] [address] PCP - General Internal Medicine 03/29/22 documented as of this encounter
--- OUTSIDE RECORDS SUMMARY | 2025-01-23 19:52 | XMS_ITS | Encounter Summary ---
Author Organization [facility] [employer] Address [address] [place] [address] Care Team Providers Care Processing Lead Name Role Phone Saud Valero MD Primary Care Provider +1- [phone] Reason for Visit * Reason Onset Date Comments Needs Orders Written 05/22/2024 Encounter Details Date Type Department Care Team (Late st Contact Info) Description 05/22/2024 Telephone [facility] Adult Sleep Medicine S [facility] [address] [place] [address] Jeromy Day MD [address] [facility] [address] [place] [address] Needs Orders Written Social History Tobacco Use Types Packs/Day Years Used Date Smoking Tobacco: Former Cigarettes 0.5 20 0 09/10/1996 - 09/10/2016 Cigars Passive Smoke Exposure: Never Smokeless Tobacco: Never Alcohol Use Standard Drinks/Week Comments Yes 2 (1 standard drink = 0.6 oz pur e alcohol) Comments No Sex and Gender Information Value Date Recorded Sex Assigned at Female 07/31/2023 11:17 AM HAND SPRING REPAIRER HELPER Legal Sex Female 4:16 AM HAND SPRING REPAIRER HELPER Gender Identity Female 07/31/2023 11:17 AM HAND SPRING REPAIRER HELPER Sexual Orientation Not on file documented as of this encounter Miscellaneous Notes * Telephone Encounter - Desi Dunn - 05/22/2024 3:05 PM CST Supply and time charges only have been billed. The sleep test did not provide enough data for interpretation. SPRING REPAIRER HELPER documented in this encounter Plan of Treatment Not on file documented as of this encounter Visit Diagnoses Not on filedocumented in this encounter Care Teams Processing Lead Relationship Specialty [place] [address] [facility] [address] [place] [phone] PCP - General Internal Medicine 03/29/22 documented as of this encounter
--- OUTSIDE RECORDS SUMMARY | 2025-01-23 19:52 | XMS_ITS | Patient Health Record ---
Author Organization [facility] Address [address] [place] [address] Care Team Providers Care Interface Control Officer Name Role Phone Lili Orellana Primary Care Provider [phone] Allergies Allergen (clinical drug ingredient) Drug/Non Drug Allergy documented on EMR Reaction Allergy Type Onset Date Status Shellfish (FN) Shellfish-derived Products hives/swelling Drug Allergy Active Gluten Gluten abdominal pain Allergy Activ e Wheat Dextrin abdominal pain Drug Allergy Active Reason For Referral No Information Medications Medication SIG (Take, Route, Frequency, Duration) Notes Start Date End Date Status Fluticasone Propionate 50 MCG/ACT 1 spray in each nostril Nasally Once a day as needed for congestion and allergies for 90 days 11/22/2023 Active dexAMETHasone Sodium Phosphate 4 MG/ML 1 mL Injection Once a day for 1 days 11/22/2023 Active Fexofenadine HCl 180 MG 1 tablet Orally Once a day for 90 days 11/22/2023 Active Meclizine HCl 25 MG 1 tablet Orally every 12 hrs for 5 days As needed for vertigo 11/22/2023 Active Zepbound 15 MG/0.5ML 0.5 mL Subcutaneous once a week for 28 days Active Adderall 20 MG 1 tablet Orally once a day Active Social History Tobacco Use: Social History Observation Description Date Details (start date - stop date) Never Smoker NA - NA Tobacco Control Question Answer Notes Tobacco use: Nonsmoker Problems Problem Type SNOMED Code ICD Code Onset Dates Problem Status W/U Status Risk Notes Problem [id number] Obesity (BMI 30.0-34.9) (E66.9) Active confirmed Problem [id number] Allergic rhinitis, unspecified seasonality, unspecified trigger (J30.9) Active confirmed Plan Of Treatment No Information Insurance Providers Payer Name Payer Address Payer Phone Subscriber Number Group Number Insured Name Patient Relationship to Insured Coverage Start Date Coverage End Date [employer] [address] [address] [place] [address] [id number] YONNY MCDONALD Self - patient is the insured 3 [employer] P[address] [place] [address] [id number] YONNY MCDONALD Self - patient is the insured 3 3 Medical (General) History Medical History History ICD Code Arthritis Pneumonia Surgical History Surgery Date(Month/Year) Hysterectomy 2022 Hospitalization History Reason Date(Month/Year) Hysterectomy 2022
--- OUTSIDE RECORDS SUMMARY | 2025-01-23 19:52 | XMS_ITS | Continuity of Care Document ---
Author Organization [facility] Address [address] [place] [address] Phone Care Team Providers Care Vp Organizational Development Name Role Phone Titusleobardo MSPT, CMPT, Dev Unavailable Unava ilable Procedures Procedure Date Therapeutic Exercise Therapeutic Activities Neuromuscular Re-Ed Manual Therapy Progress Note Therapeutic Exercise Therapeutic Activities Neuromuscular Re-Ed Manual Therapy Therapeutic Exercise Therapeutic Activities Neuromuscular Re-Ed Manual Therapy PT Evaluation Low Complexity Therapeutic Exercise Progress Note Therapeutic Exercise Manual Therapy Hot or Cold Pack Therapeutic Exercise Manual Therapy Hot or Cold Pack Therapeutic Exercise Manual Therapy Hot or Cold Pack Therapeutic Exercise Manual Therapy Therapeutic Exercise Manual Therapy PT Evaluation Low Complexity Therapeutic Exercise Manual Therapy Advance Directives Directive Yes / No Effective Date File Name No Information Encounters Encounter Description Practice Location Reason(s) For Visit Diagnoses Date Provider Providers Copied on Encounter [facility], [address], [place], [place], [id number], [place] tel:[phone] [place] Strain of muscle, fascia and tendon of lower back, subsLow back painOth symptoms and signs involving the musculoskeletal system May-0 8-201 8 Harthill Dev. [address] [place] [address], [address], [place], [place], [facility], [place]. [phone] Referring Provider: Lydia Robert, [address] [place], [address]. tel:[phone] [address], [place], [place], [id number], [place] tel:[phone] [place] Strain of muscle, fascia and tendon of lower back, subsLow back painOth symptoms and signs involving the musculoskeletal system 0 5201 8 Hartjonyll Dev. [address] [place] [address], [address], [place], [place], [facility], [place]. tel:[phone] Referring Provider: Lydia Robert, [address] [place], [address]. tel:[phone] [facility] [address] [place] [address], [id number], [place] tel:[phone] [place] Strain of muscle, fascia and tendon of lower back, subsLow back painOth symptoms and signs involving the musculoskeletal system 0 2201 8 Hartleobardo Dev. [address] [place] [address], [address], [place], [place], [facility], [place]. tel:[phone] Referring Provider: Lydia Robert, [address] [place], [address]. tel:[phone], [id number], [place] tel:[phone] [place] Strain of muscle, fascia and tendon of lower back, subsLow back painOth symptoms and signs involving the musculoskeletal system Apr-3 1201 8 Hartjonyll Dev. [address] [place] [address], [address], [place], [place], [facility], [place]. tel:[phone] Referring Provider: Lydia Robert, [address], [place], [address]. tel:[phone] [facility], [address], [place], [place], [id number], [place] tel:[phone] [place] No Information 0 8 Anderson Emanuel. . Referring Provider: Saud Valero, [address], [place], [address]. tel:[phone] [facility], [place], [place], [id number], [place] tel:[phone] [place] No Information 8 Anderson Emanuel. . Referring Provider: Saud Valero, [address], [place], [address]. tel:[phone] [facility], [place], [place], [id number], [place] tel:[phone] [place] No Information 8 Anderson Emanuel. . Referring Provider: Saud Valero, [address], [place], [address]. tel:[phone] [facility], [place], [place], [id number], [place] tel:[phone] [place] No Information 8 Anderson Emanuel. . Referring Provider: Saud Valero, [address], [place], [address]. tel:[phone] [facility], [place], [place], [id number], [place] tel:[phone] [place] No Information 8 Anderson Emanuel. . Referring Provider: Saud Valero, [address], [place], [address]. tel:[phone] [facility], [place], [place], [id number], [place] tel:[phone] [place] Strain of muscle and tendon of unsp wall of thorax, subsOth symptoms and signs involving the musculoskeletal systemAbnormal posture 8 Bishop Castellanos. . Referring Provider: Saud Valero, [address] [facility] [address], [place], [address]. tel:[phone] Family History Family Member Type Diagnosis Age At Onset No Information Payers Payer name Insurance type Covered green party ID Raymond perez(s) [place] [employer] Administrators [facility] [id number] One Call - Align SP [id number] Social History Type Description Quantity Date Captured Comments Sex Female Smoking Status No Information Chief Complaint And Reason For Visit No Information Reason For Referral Reason For Referral No Information History Of Present Illness Encounter Date Complaint History Of Prese nt Illness No Information Functional Status Date Functional Assessmen t No Information Instructions Date Instruction Additional Infor mation No Information Assessments Type Assessment Date No Information Patient Care Teams Name Effective Dates (start - stop) Status Members No Information
--- OUTSIDE RECORDS SUMMARY | 2025-01-23 19:52 | XMS_ITS | Clinical Summary ---
Author Organization [facility] Address [address] [place] [address] Care Team Providers Care Water Softener Servicer And Installer Name Role Phone CarlKulwant Primary Care Provider [phone] Source Comments [facility],non-owned Affiliates and Associated Physician Practices is amultiple site organization consisting of ambulatory clinics and hospital sitesin [place], [place]. This disclosure is being madepursuant to the Care Everywhere program and may not contain all information available regarding this patient. Last updated 18.[facility] Allergies Active Allergy Reactions Criticality Noted Date Comments Gluten Meal Diarrhea 09/25/2018 Shellfish Allergy Anaphylaxis High 09/25/2018 Medications * Be aware that medications may not be up to date on this document. Alwaysverify current medications with the patient. cetirizine (ZYRTEC) 10 MG tablet TK 1 T PO D 11/24/2019 Active omeprazole (PRILOSEC) 20 MG capsule TAKE ONE CAPSULE BY MOUTH EVERY DAY 90 capsule 1 06/29/2020 Active cyclobenzaprine (FLEXERIL) 10 MG tablet Take 1 (one) tablet by mouth 3 times daily 30 tablet 08/17/2020 Active albuterol HFA (PROVENTIL;VENT JOLANTA;PROAIR) 108 (90 Base) MCG/ACT inhaler INHALE 2 PUFFS BY MOUTH EVERY 6 HOURS 6.7 g 3 09/09/2020 Active fluticasone propionate (FLONASE) 50 MCG/ACT nasal spray SHAKE LIQUID AND USE 1 SPRAY IN EACH NOSTRIL TWICE DAILY 48 g 11/08/2020 Active Active Problems No known active problems Immunizations Immunization Administration Dates Next Due INFLUENZA VACCINE, QUADR. (F LUZONE; FLULAVAL; FLUARIX; AFLURIA QUADRIVALENT; 6MO+), 0.5 ML (IIV4) 04/30/2015 TDAP (7yrs+) 04/30/2015 Family History Medical History Relation Name Comments Cancer Maternal Grandfather bladder Asthma Mother Diabetes Paternal Grandmother Arthritis - Rheumatoid Sister 2 Asthma Sister 3 Relation Name Status Comments Father Alive Maternal Grandfather Maternal Grandmother Alive Mother Alive Paternal Grandfather Paternal Grandmother Sister 1 Alive Sister 2 Sister 3 Social History Tobacco Use Types Packs/Day Years Used Date Smoking Tobacco: Former Smokeless Tobacco: Never Alcohol Use Standard Drinks/Week Comments Yes 0 (1 standard drink = 0.6 oz pur e alcohol) Comments No Sex and Gender Information Value Date Recorded Sex Assigned at Not on file Legal Sex Female 4:42 PM 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 Gender Identity Not on file Sexual Orientation Not on file Last Filed Vital Signs Vital Sign Reading Time Taken Comments Blood Pressure 138/94 11/20/2023 5:31 PM CDT Pulse 69 11/20/2023 5:31 PM CDT Temperature 36.4 C (97.5 F) 11/20/2023 2:27 PM CDT Respiratory Rate 13 11/20/2023 5:31 PM CDT Oxygen Saturation 100% 11/20/2023 5:31 PM CDT Inhaled Oxygen Concentration - - Weight 105.2 kg (232 lb) 11/20/2023 2:18 PM CDT Height 160 cm (5' 3) 11/20/2023 2:18 PM CDT Body Mass Index 41.1 11/20/2023 2:18 PM CDT Plan of Treatment Health Maintenance Due Date Last Done Comments COLOGUARD (AGES 45-75) - COLON CA SCREENING 1974 COLON MONITORING 1974 COLONOSCOPY - COLON CA SCREENING 1974 CT COLONOGRAPHY - COLON CA SCREENING 1974 Colorectal Cancer Screening 1974 FIT - COLON CA SCREENING 1974 FLEX SIG - COLON CA SCREENING 1974 HIV SCREENING 1989 HEPATITIS C SCREENING 08/29/1992 HEPATITIS B VACCINE (1 of 3 - 19+ 3-dose series) 1993 PAP SMEAR 1995 LIPID TESTING 09/26/2023 09/25/2018 COVID-19 VACCINE (1 - season) 2024 DEPRESSION SCREENING 07/09/2024 PNEUMOCOCCAL VACCINE 50+ (1 of 1 - PCV) 2024 ZOSTER VACCINE (1 of 2) 2024 INFLUENZA VACCINE (#1) 2025 04/30/2015 DTAP/TDAP/TD VACCINES (2 - Td or Tdap) 04/30/2025 04/30/2015 MAMMOGRAM 11/14/2025 11/15/2023, 0503/2024, 11/15/2023, Additional history exists SCREENING FOR DIABETES 11/19/2026 , 05/06/2020, 10/02/2019, Additional history exists HIB VACCINE Aged Out No longer eligi ble based on patient's age to complete this topic HPV VACCINE Aged Out No longer eligi ble based on patient's age to complete this topic MENINGOCOCCAL (Group B) VACCINE SHARED DECISION-MAKING Aged Out No longer eligible based on patient's age to complete this topic MENINGOCOCCAL GROUPS A/C/Y/W VACCINE Aged Out No longer eligible based on patient's age to complete this topic Procedures Procedure Name Priority Date/Time Associated Diagnosis Comments COMPREHENSIVE METABOLIC PANEL STAT 11/20/2023 2:50 PM CDT MAMMO BILAT SCREENING Routine 09/26/2018 10:12 AM CDT Physical exam, annual Class 3 severe obesity due to excess calories without serious comorbidity with body mass index (BMI) of 45.0 to 49.9 in adult Arthralgia, unspecified joint LIPID PROFILE Routine 09/25/2018 4:00 PM CDT Physical exam, annual from Last 3 Months or Most Recently Relevant to Health Maintenance Results * (ABNORMAL) COMPREHENSIVE METABOLIC PANEL (11/20/2023 2:50 PM CDT) [facility] Glucose 106(H) 70 - 105 mg/dL 11/20/2023 3:12 PM CDT [facility] Sodium 140 136 - 145 mmol/L 11/20/2023 3:12 PM CDT [facility] Potassium 3.9 3.5 - 5.1 mmol/L 11/20/2023 3:12 PM CDT [facility] Chloride 107 98 - 107 mmol/L 11/20/2023 3:12 PM CDT [facility] CO2 25 22 - 29 mmol/L 11/20/2023 3:12 PM CDT [facility] Calcium 8.8 8.4 - 10.4 mg/dL 11/20/2023 3:12 PM CDT [facility] Anion Gap 8 6 - 16 mmol/L 11/20/2023 3:12 PM CDT [facility] BUN 14 5.3 - 18.7 mg/dL 11/20/2023 3:12 PM CDT [facility] Creatinine 0.72 0.57 - 1.11 mg/dL 11/20/2023 3:12 PM T [facility] Alkaline Phosphatase 45 40 - 150 U/L 11/20/2023 3:12 PM CDT [facility] ALT 17 0 - 55 U/L 11/20/2023 3:12 PM CDT [facility] AST 25 5 - 34 U/L 11/20/2023 3:12 PM CDT [facility] Protein Total 7.4 6.4 - 8.3 gm/dL 11/20/2023 3:12 PM T [facility] Albumin 3.4 3.4 - 5.0 gm/dL 11/20/2023 3:12 PM CDT [facility] Bilirubin Total 0.2 0.2 - 1.2 mg/dL 11/20/2023 3:12 PM CDT [facility] eGFR by CKD-EPI >90 >=90 mL/min/1.7 3 m2 11/20/2023 3:12 PM T [facility] Blood BLOOD SPECIMEN / Unknown Venipuncture / Unknown 11/20/2023 2:50 PM CDT 11/20/2023 2:53 PM CDT us Violette Altamirano MD LAB - CHEMISTRY ORDERABLES Fin al Result [facility] [address] [place] [address] * MAMMO BILAT SCREENING (09/26/2018 10:12 AM CDT) Anatomical Region Laterality Modality Breast Bilateral Mammography 10/01/2018 9:38 AM CDT Narrative 10/01/2018 9:43 AM CDT DIGITAL BILATERAL SCREENING MAMMOGRAMS WITH CAD AND 3-D TOMOSYNTHESIS DATE: 09/26/2018 PREVIOUS EXAM DATE: 01/29/2015 INDICATION: Screening. TECHNIQUE: Bilateral craniocaudad (CC) and mediolateral oblique (MLO) views. 3-D tomosynthesis was performed. Images were interpreted with the aid of CAD. TISSUE DENSITY: Heterogeneously dense, which may obscure small masses FINDINGS: There are no suspicious masses or microcalcifications. No architectural distortion is appreciated on tomosynthesis. There has been no significant interval change since previous examination. ASSESSMENT: Negative, BI-RADS 1. RECOMMENDATIONS: Continue annual screening mammography in one year. The above findings should be correlated with physical examination. A relatively nonspecific study should not preclude additional evaluation if suspicious findings are present clinically. An [employer]. [facility] utilizes TwtBks as a reminder system to notify patients of their next recommended mammograms. Reading Radiologist: Veronika Carrasquillo MD on 10/01/2018 at 9:43 AM Kulwant Henry DO MAMMO ORDERABLES Final Result * (ABNORMAL) LIPID PROFILE (09/25/2018 4:00 PM CDT) Cholesterol 174 <200 mg/dL [facility] INSURANCE BILL Triglycerides 80 <150 mg/dL [facility] INSURANCE BILL HDL Cholesterol 51 >40 mg/dL [facility] INSURANCE BILL VLDL Calculated 16(L) >=30 mg/dL [facility] INSURANCE BILL LDL Calculated 107 <130 mg/dL [facility] INSURANCE BILL Blood BLOOD SPECIMEN / Unknown 09/25/2018 4:00 PM CDT 09/25/2018 Narrative Resulting Agency Comment [facility] [address] Lori SCHREIBER [id number] Kulwant Henry DO LAB - CHEMISTRY ORDERABLES Final Result [facility] INSURANCE BILL [address] [place] [address] from Last 3 Months or Most Recently Relevant to [place] [address] [place] [address] [employer] Care Teams Water Softener Servicer And Installer Relationship Specialty [place] [address] [place] [address] PCP - General Family Medicine 04/30/15
--- OUTSIDE RECORDS SUMMARY | 2025-01-23 19:52 | XMS_ITS | Encounter Summary ---
Author Organization [facility] Address [address] [place] [address] Care Team Providers Care Cell Geneticist Name Role Phone Saud Valero MD Primary Care Provider [phone] Encounter Details Date Type Department Care Team (Late st Contact Info) Description 11/01/2007 Orders Only [facility] Internal Medicine Medical [place] [facility] [address] [address] Jonathan Mercedes MD [address] [facility] [address] [place] [address] Social History Tobacco Use Types Packs/Day Years Used Date Smoking Tobacco: Never Assessed Comments Unknown Sex and Gender Information Value Date Recorded Sex Assigned at Female 07/31/2023 11:17 AM ASSISTANT PROFESSOR OF BUSINESS Legal Sex Female 4:16 AM ASSISTANT PROFESSOR OF BUSINESS Gender Identity Female 07/31/2023 11:17 AM ASSISTANT PROFESSOR OF BUSINESS Sexual Orientation Not on file documented as of this encounter Progress Notes * Loy Mercedes MD - 12/13/2007 11:30 AM CDT TIME:11:36 am PATIENT`S HOME PHONE: PATIENT`S WORK PHONE: PATIENT`S INSURANCE: [facility] WHO TOOK THE CALL: Stefanie Webster R GENERAL INFORMATION ALTERNATIVE PHONE NUMBER: [phone] WHO CALLED: Patient called. PROBLEMS: patient hasn't taken anything EARACHE: Patient complains of earache. The symptoms began approximately 1 week ago. constant right ear pain and fluid in same ear...brings on facial pain if she touches her ear HEADACHE: Patient complains of tension headache. PAIN: Patient complains of shoulder pain, neck pain. The onset was approximately 1 week ago. Pain on right side for both neck and shoulder SORE THROAT: Patient complains of sore throat. mild SECTION 1: DOCTOR`S RESPONSE: pravin 11/01/07 at 01:20 pm MEDICATIONS: Call in to Pharmacy ZITHROMAX Z-JOSE ORAL TABLET 250 MG PACKS, 2 TAB ONE TIME ORAL 1st day and then 1 tab q day therafter, 1 Dispensed, status: NEW PRESCRIPTION, 11/01/2007. DOCTOR`S OTHER RESPONSE: Should also take Mucinex and Sudafed. Ibuprofen 800 mg q 8 hours for the pain FINAL ACTION: andebb 11/01/07 at 01:44 pm Spoke with patient 11/01/07 at 01:44 pm. Called pharmacy at 11/01/07 at 01:44 pm. documented in this encounter Plan of Treatment Not on file documented as of this encounter Visit Diagnoses Not on filedocumented in this encounter Care Teams Cell Geneticist Relationship Specialty [place] [address] [facility] [address] [place] [phone] PCP - General Internal Medicine 03/29/22 documented as of this encounter
--- OUTSIDE RECORDS SUMMARY | 2025-01-23 19:52 | XMS_ITS | Encounter Summary ---
Author Organization [facility] Address [address] [place] [address] Care Team Providers Care Design Inserter Name Role Phone Saud Valero MD Primary Care Provider [phone]- [phone] Encounter Details Date Type Department Care Team (Late st Contact Info) Description 09/30/2007 Orders Only [facility] Internal Medicine Medical [place] [facility] [address] [address] Jonathan Mercedes MD [address] [facility] [address] [place] [address] Social History Tobacco Use Types Packs/Day Years Used Date Smoking Tobacco: Never Assessed Comments Unknown Sex and Gender Information Value Date Recorded Sex Assigned at Female 07/31/2023 11:17 AM APPRAISAL MANAGER Legal Sex Female 4:16 AM APPRAISAL MANAGER Gender Identity Female 07/31/2023 11:17 AM APPRAISAL MANAGER Sexual Orientation Not on file documented as of this encounter Progress Notes * Salbador Mercedes MD - 12/12/2007 7:37 PM CDT TIME:11:53 am PATIENT`S HOME PHONE: PATIENT`S WORK PHONE: PATIENT`S INSURANCE: [facility] WHO TOOK THE CALL: Stefanie Webster R GENERAL INFORMATION ALTERNATIVE PHONE NUMBER: [phone] WHO CALLED: Patient called. CURRENT ALLERGY LIST: [facility] NUMBER: [phone] OTHER INFORMATION: Patient is not currently . 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 PROBLEMS: has taken benadryl and nyquil, air[place], aspirin and mucinex...wanted to know if z dandre or amoxicillin would help CONGESTION: Patient complains of nasal congestion. The symptoms began approximately 4 days ago. left side facial pain....had productive cough but now cough is dry DIZZINESS:Patient complains of dizziness. room spins when trying to walk, no fever EARACHE: Patient complains of earache. left ear SORE THROAT: Patient complains of sore throat. The sore throat began approximately 3 days ago. Patient has been off work 09/25, 09/26 and today 09/29.....can she get letter to excuse her from work for those days SECTION 1: DOCTOR`S RESPONSE: pravin 09/30/07 at 12:48 pm MEDICATIONS: Call in to Pharmacy AMOXICILLIN ORAL TABLET 500 MG, 1 Three Times A Day, 30 Dispensed, status: NEW PRESCRIPTION, 09/30/2007. DOCTOR`S OTHER RESPONSE: we can give a letter stating that she missed work because of her symptoms but we cannot state that we examined the patient or that we diagnosed any specific illness FINAL ACTION: carlton 09/30/07 at 01:12 pm Spoke with patient 09/30/07 at 01:12 pm. Called pharmacy at 09/30/07 at 01:12 pm. * Salbador Mercedes MD - 12/12/2007 7:36 PM CDT [facility] INTERNAL MEDICINE SALBADOR MERCEDES MD [address] [place] [address] September 30, 2007 SHIMON JESUS [address] [place] [address] SHIMON JESUS has been under our care during the dates below: Sincerely yours, SALBADOR MERCEDES MD * Salbador Mercedes MD - 12/12/2007 7:36 PM CDT [facility] INTERNAL MEDICINE SALBADOR MERCEDES MD [address] [place] [address] September 30, 2007 SHIMON JESUS [address] [place] [address] SHIMON JESUS has been under our care during the dates below: Sincerely yours, SALBADOR MERCEDES MD * Salbador Mercedes MD - 12/12/2007 7:36 PM CDT [facility] INTERNAL MEDICINE SALBADOR MERCEDES MD [address] [place] [address] September 30, 2007 SHIMON [address]ESUS [address] [place] [address] SHIMON JESUS has been under our care during the dates below: Please excuse patient from work on the below dates due to illness. 09/25, 09/26 and 09/29 Sincerely yours, SALBADOR MERCEDES MD documented in this encounter Plan of Treatment Not on file documented as of this encounter Visit Diagnoses Not on filedocumented in this encounter Care Teams Design Inserter Relationship Specialty [place] [address] [facility] [address] [place] [phone] PCP - General Internal Medicine 03/29/22 documented as of this encounter
--- OUTSIDE RECORDS SUMMARY | 2025-01-23 19:52 | XMS_ITS | Data Portability ---
Author Organization [place] [facility], [address] [facility] Address [address] [place] [address] Care Team Providers Care Manager Merchandise Name Role Phone OLU SCOTT Primary Care Provider [phone] Assessment No assessment recorded. Plan of Treatment Reminders Order Date Submit Date Provider Last Modified By Organization Details Last Modified Time Details Appointments None record ed. Lab None record ed. Referral None record ed. Procedures None record ed. Surgeries None record ed. Imaging None record ed. Medication Orders None record ed. Patient TargetsNo targets recorded. Patient Instructions Encounter Date Encounter Id Patient Instructions Last Modified By Organization Details Last Modified Time 08/05/[id number] plantar fasciiti s: care instructions [email or web address] Not available 08/05/2018 18:28:03 plantar fasciiti s: exercises [email or web address] Not available 08/05/2018 18:28:03 Discuss diagnosi s, prognosis, treatment options and alternatives for heel pain. Options include activity modification with avoidance of high impact activities such as running or jumping, new footwear, stretching exercises and other physical therapy to change foot mechanics and improve lower extremity function (pamphlet given). Can consider corticosteroid injections, oral steroids , NSAIDs to temporarily reduce inflammation; strapping and taping, OTC arch supports or custom functional foot orthoses to change foot function and reduce pressure on the heel; PRP, amniotic or stem cell injections, and facial debridement/releas e and resection of heel spur. Conservative care options usually decreases symptoms 80-90% within 6 months. Surgery is rarely necessary. Recommended radiography to assess for spur size and position, r/o other bone lesions, systemic arthritis or bone injury. Recommended diagnostic ultrasound to assess the plantar fascia thickness, for rupture or other abnormality or soft tissue mass or impingement. Problem 1) For the fasciitis, I recommended that the patient begin with a combination of stretching exercises, ice after activity, arch supports vs functional orthoses vs fascial splinting. Discuss and demonstrate plantar fascial and posterior heel chord stretches. Patient was advised as to the benefits of proper shoes to better support the foot structure. Recommended and dispensed PSC brace to stabilize the foot, and consider a night splint to prevent fascial contracture while sleeping. Problem 2) For the heel inflammation, I recommended Rx for medol dosepack to reduce inflammation and relieve the acute pain. 40 minute visit today of which 35 min was devoted to the discussion, counseling and coordinating the care and treatment program for the plantar fasciitis and structural issues, and 5 min devoted to the bursitis discussion and treatment. [email or web address] Not available 08/05/2018 18:27:02 08/26/2018 [id number] plantar fasciiti s: care instructions [email or web address] Not available 08/26/2018 17:31:44 plantar fasciiti s: exercises [email or web address] Not available 08/26/2018 17:31:44 Continue the stretches and PSC until gone plus 1 weeks. Check 1 month if not fully resolved. [email or web address] Not available 08/26/2018 17:30:51 Reason for Referral None Reported. Procedures Surgical History Date Name Laterality Status Provider Name and Address Organization Details Recorded Time 9 58478 PSC strap completed [facility] [place], [address], [facility] 08/26/2018 17:31:11 9 86144 PSC strap completed Reza Davis DPM [address] [place], [address], [facility] 08/05/2018 18:25:31 9 353073 limited RIGHT Ft SK completed Reza Davis DPM [address] [place], [address], [facility] 08/05/2018 18:24:02 9 791513 ultrasound heel Rt completed Reza Davis DPM [address] [place], [address], [facility] 08/05/2018 18:25:14 Imaging Results None recorded. Procedure Notes None recorded. Medical Equipment None Reported. Allergies Allergen ID Allergen Name Allergen Category Reaction Reaction Severity Criticality Documentation Date Start Date Code Code System Note Provider Name and Address Organization Details Recorded Time 36936 wheat gluten extract food Not available Not available Not available 08/05/2018 50882 81 RxNorm chaitanya dietzleda noel [facility] 9 17:28:58 Medications Name Sig Start Date Stop Date Status Note LastModified by Organization Details LastModified Time azithromycin 250 mg tablet active Not Available Not Available No t Available promethazine 6.25 mg-codeine 10 mg/5 mL syrup TK 5 ML PO Q 4 HOURS PRN FOR COUGH active Not Available Not Available No t Available omeprazole 20 mg capsule,delayed release TK 1 C PO QD active Not Available Not Available No t Available norethindrone acetate 5 mg tablet TK 1 T PO QD active Not Available Not Available No t Available cefuroxime axetil 500 mg tablet TK 1 T PO BID active Not Available Not Available No t Available methylprednisolo ne 4 mg tablets in a dose pack TK UTD active Not Available Not Availab le Not Available naproxen 500 mg tablet TK 1 T PO BID PRN P active Not Available Not Available No t Available Ventolin HFA 90 mcg/actuation aerosol inhaler INHALE 2 PUFFS Q 4 H PRF COUGH/W HEEZE active Not Available Not Available No t Available cyclobenzaprine 5 mg tablet active Not Available Not Available Not Available Vitals Date Recorded Body height Body mass index (BMI) Body weight Provider Name and Address Organization Details Last Updated DateTime 08/05/2018 160.02 cm 42.5 kg/m2 495884.17 g chaitanya j luismarge [facility] 08/05/2018 17:29:19 Date Recorded Body height Provider Name an d Address Organization Details Last Updated DateTime 08/26/2018 160[address] [facility] 08/26/2018 17:20:12 Social History Question Answer Notes LastModified by Organizat ion Details LastModified Time Tobacco Smoking Status Former Smoker chaitanya j luismarge [facility] 08/05/2018 17:29:33 Quit Smoking How Many Years Ago? 14 Information not available 08/05/2018 Size Of Shoes 8.5w Inform ation not available 08/05/2018 What Was The Date Of Your Most Recent Tobacco Screening? 08/26/2018 Information n ot available 01/29/2019 Sex: Unknown Functional Status Question Answer Note LastModified by Organizat ion Details LastModified Time What is your level of alcohol consumption? Occasional Information not available 08/05/2018 What is your exercise level? None Information not available 08/05/2018 Mental Status None recorded. Family History Nothing Reported Notes:A&W Medical History Condition Response HIV or AIDS N Coronary Artery Disease N Gout N Seizure Disorder N High Blood Pressure N Menopause N Lung Condition N Depression N Pacemaker N Sciatica N Anxiety Disorder N Urinary Tract Infections N Arthritis N Ear Problems N Cancer N Eye Problems N Stroke N Stomach Problems Y High Cholesterol N Liver Disease N Rheumatoid Arthritis N Rash N Kidney Disease N Tuberculosis or TB N Heart Problems N Ulcers on Legs or Feet N Clot in Lung or Pulmonary Embolism N Phlebitis or Venous Blood Clot N Migraines N Anemia Y Back Pain Y Neurologic Disease N Heart Attack (CT) N Diabetes N Bleeding Disorder N Abuse of Alcohol or Drugs N Back injury N Dementia N Peripheral Vascular Disease N Sinus Conditions N Broken Bone N Thyroid Disorder N Hepatitis N Heart Disease N Osteoporosis N Gynecological HistoryNo gynecological history recorded. Obstetrics History GPAL:G 0 P 0 0 0 0 Past Encounters Encounter ID Performer Location Encounter Start Date Encounter Closed Date Diagnosis/Indication Diagnosis SNOMED-CT Code Diagnosis ICD10 Code Diagnosis Note [id number] Reza RyanNICHELLEFaiza [address]UL [address] [address] [place] [address] 08/05/2018 17:19:05 08/05/2018 18:03:02 Plantar fasciitis 902961830 M72.2 Calcaneal spur 64543490 M77.31 Bursitis 82875986 M71.9 Pain in right foot 80255 35022 63769 M79.671 [id number] Reza DavisNICHELLEFaiza [address] [address] [place] [address] 08/26/2018 17:14:18 08/26/2018 17:30:43 Plantar fasciitis 994956934 M72.2 Calcaneal spur 22657428 M77.31 Bursitis 85008450 M71.9 Pain in right foot 51149 56381 42904 M79.671 Health Concerns Section Related Observation LastModified by Organization Detai ls LastModified Time None Recorded Concern Status LastModified by Organization Details LastModified Time None Recorded Advance Directives Directive None Recorded Payers Insurance Date Sequence Insurance Name Policy Number Policy Bee Covered Member ID Bee Member ID Guarantor Name 08/23/2018 1 [employer] [id number] Shimon Jesus [id number] Shimon Jesus Notes Date Note Type Note Provider Name and Address Organization Details Recorded Time 08/05/2018 text/html Heel Pain--Reported bypatient.Locati on:right bottom of the heel Nature of Pain:aching Duration:few years Onset:just started to hurt all of the sudden one day Course:about the same Aggravating Factors:pain is worst when getting up out of bed in the morning (but can also hurt at the end of the day) Allevating Factors:stretchi ng exercises (can help but the pain comes back) Prior Imaging:none Reza Davis DPM [address] [place] [address], [address], [facility] 08/05/2018 18:28:05 08/26/2018 text/html Heel Pain--Reported bypatient.Locati on:right bottom of the heel Nature of Pain:pt states pain is 50% better Duration:few years Onset:just started to hurt all of the sudden one day Course:improved 50% Aggravating Factors:pain is worst when getting up out of bed in the morning (but can also hurt at the end of the day) Allevating Factors:stretchi ng exercises (can help but the pain comes back) Prior Imaging:noneNote s:pt states psc wrap is improving pain Much improved Reza Davis DPM [address] [place] [address], [address], [facility] 08/26/2018 17:31:47 OBGyn Episode No OBEpisode recorded.
--- OUTSIDE RECORDS SUMMARY | 2025-01-23 19:52 | XMS_ITS | Encounter Summary ---
Author Organization [facility] Address [address] [place] [address] Care Team Providers Care Psychotherapist Counselor Name Role Phone Saud Valero MD Primary Care Provider +1- [phone] Encounter Details Date Type Department Care Team (Late st Contact Info) Description 06/28/2023 Telephone [facility] Internal Medicine [place] Myron [email or web address] [place] [address] [place] [address] [email or web address] [place] [address] Social History Tobacco Use Types Packs/Day Years Used Date Smoking Tobacco: Former Cigarettes 0.5 20 0 09/10/1996 - 09/10/2016 Cigars Passive Smoke Exposure: Never Smokeless Tobacco: Never Alcohol Use Standard Drinks/Week Comments Yes 2 (1 standard drink = 0.6 oz pur e alcohol) Comments No Sex and Gender Information Value Date Recorded Sex Assigned at Female 07/31/2023 11:17 AM NURSE MONITORING Legal Sex Female 4:16 AM NURSE MONITORING Gender Identity Female 07/31/2023 11:17 AM NURSE MONITORING Sexual Orientation Not on file documented as of this encounter Plan of Treatment Not on file documented as of this encounter Visit Diagnoses Not on filedocumented in this encounter Care Teams Psychotherapist Counselor Relationship Specialty [place] [address] [place] [address] PCP - General Internal Medicine 03/29/22 documented as of this encounter
--- OUTSIDE RECORDS SUMMARY | 2025-01-23 19:52 | XMS_ITS | Encounter Summary ---
Author Organization [facility] Address [address] [place] [address] Care Team Providers Care Accident Examiner Name Role Phone Saud Valero MD Primary Care Provider [phone]- [phone] Reason for Referral * Medication Prior Authorization - Authorized Specialty Diagnoses / Procedures Referred By Maria Guadalupe t Referred To Contact Diagnoses Obesity, unspecified class, unspecified obesity type, unspecified whether serious comorbidity present ANTOINE (obstructive sleep apnea) Ilene Cline FNP [id number] [employer] [facility] [address] [place] [address] Phone: tel: fax: Referral ID Status Reason Start Date Expiration Date V isits Requested Visits Authorized [id number] Authorized 1 1 Reason for Visit * Reason Comments Physical Encounter Details Date Type Department Care Team (Late st Contact Info) Description 01/23/2025 2:00 PM CDT Office Visit [facility] Internal Medicine Carm[place] Sanches [address] [employer] [facility] [address] [place] [address] Ilene Cline FNP [address] [employer] [address] [place] [place] [address] Other fatigue (Primary Dx); Elevated LDL cholesterol level; Obesity, unspecified class, unspecified obesity type, unspecified whether serious comorbidity present; ANTOINE (obstructive sleep apnea) Social History Tobacco Use Types Packs/Day Years Used Date Smoking Tobacco: Former Cigarettes 0.5 20 0 09/10/1996 - 09/10/2016 Cigars Passive Smoke Exposure: Never Smokeless Tobacco: Never Alcohol Use Standard Drinks/Week Comments Yes 2 (1 standard drink = 0.6 oz pur e alcohol) Comments No Sex and Gender Information Value Date Recorded Sex Assigned at Female 07/31/2023 11:17 AM STUDENT SUPPORT SERVICES DIRECTOR Legal Sex Female 4:16 AM STUDENT SUPPORT SERVICES DIRECTOR Gender Identity Female 07/31/2023 11:17 AM STUDENT SUPPORT SERVICES DIRECTOR Sexual Orientation Not on file documented [...] Mass Index 38.26 01/23/2025 2:15 PM CDT documented in this encounter Plan of Treatment Pending Results Name Type Priority Associated Diagnoses Date /Time VITAMIN B12 LEVEL Lab Routine Other fatigue 01/23/2025 2:56 PM CDT CBC WITH DIFFERENTIAL Lab Routine Other fatigue 01/23/2025 2:56 PM CDT COMPREHENSIVE METABOLIC PANEL Lab Routine Other fatigue 01/23/2025 2:56 PM CDT TSH Lab Routine Other fatigue 01/23/2025 2:56 PM CDT HEMOGLOBIN A1C Lab Routine Other fatigue 01/23/2025 2:56 PM CDT Scheduled Orders Name Type Priority Associated Diagnoses Orde r Schedule VITAMIN B12 LEVEL Lab Routine Other fatigue Expected: 01/23/2025, Expires: 01/23/2026 CBC WITH DIFFERENTIAL Lab Routine Other fatigue Expected: 01/23/2025, Expires: 01/23/2026 COMPREHENSIVE METABOLIC PANEL Lab Routine Other fatigue Expected: 01/23/2025, Expires: 01/23/2026 TSH Lab Routine Other fatigue Expected: 01/23/2025, Expires: 01/23/2026 LIPID PANEL Lab Routine Elevated LDL cholesterol level Expected: 01/23/2025, Expires: 01/23/2026 HEMOGLOBIN A1C Lab Routine Other fatigue Expected: 01/23/2025, Expires: 01/23/2026 documented as of this encounter Visit Diagnoses Diagnosis Other fatigue- Primary Elevated LDL cholesterol level Pure hypercholesterolemia Obesity, unspecified class, unspecified obesity type, unspecified whether serious comorbidity present ANTOINE (obstructive sleep apnea) Obstructive sleep apnea (adult) (pediatric) documented in this encounter Care Teams Accident Examiner Relationship Specialty [place] [address] [facility] [address] [id number] PCP - General Internal Medicine 03/29/22 documented as of this encounter
--- OUTSIDE RECORDS SUMMARY | 2025-01-23 19:52 | XMS_ITS | Encounter Summary ---
Author Organization [facility] Address [address] [place] [address] Care Team Providers Care Rhinologist Name Role Phone Saud Valero MD Primary Care Provider +1- [phone] Encounter Details Date Type Department Care Team (Late st Contact Info) Description 02/15/2006 Outpatient Historical [facility] Internal Medicine Medical [place] [facility] [address] [facility] [address] [address] Teresita Ge MD [address] [place] [address] [address] [place] [address] Social History Tobacco Use Types Packs/Day Years Used Date Smoking Tobacco: Never Assessed Comments Unknown Sex and Gender Information Value Date Recorded Sex Assigned at Female 07/31/2023 11:17 AM COMMUNICATIONS ANALYST Legal Sex Female 4:16 AM COMMUNICATIONS ANALYST Gender Identity Female 07/31/2023 11:17 AM COMMUNICATIONS ANALYST Sexual Orientation Not on file documented as of this encounter Last Filed Vital Signs Vital Sign Reading Time Taken Comments Blood Pressure 116/60 02/15/2006 9:00 AM CDT Pulse 80 02/15/2006 9:00 AM CDT Temperature 36.7 C (98 F) 02/15/2006 9:00 AM CDT Respiratory Rate - - Oxygen Saturation - - Inhaled Oxygen Concentration - - Weight 101.6 kg (224 lb) 02/15/2006 9:00 AM CDT Height - - Body Mass Index 40.97 04/19/2005 9:15 AM CDT documented in this encounter Plan of Treatment Not on file documented as of this encounter Visit Diagnoses Not on filedocumented in this encounter Care Teams Rhinologist Relationship Specialty [place] [address] [facility] [address] [phone] PCP - General Internal Medicine 03/29/22 documented as of this encounter
--- OUTSIDE RECORDS SUMMARY | 2025-01-23 19:52 | XMS_ITS | Encounter Summary ---
Author Organization [facility] Address [address] [place] [address] Care Team Providers Care Circular Head Saw Operator Name Role Phone Saud Valero MD Primary Care Provider +1- [phone] Encounter Details Date Type Department Care Team (Late st Contact Info) Description 04/10/2005 Outpatient Historical [facility] Internal Medicine Medical [place] [facility] [address] [facility] [address] [address] Teresita Ge MD [address] [place] [address] [address] [place] [address] Social History Tobacco Use Types Packs/Day Years Used Date Smoking Tobacco: Never Assessed Comments Unknown Sex and Gender Information Value Date Recorded Sex Assigned at Female 07/31/2023 11:17 AM CHILD CARE COOK Legal Sex Female 4:16 AM CHILD CARE COOK Gender Identity Female 07/31/2023 11:17 AM CHILD CARE COOK Sexual Orientation Not on file documented as of this encounter Last Filed Vital Signs Vital Sign Reading Time Taken Comments Blood Pressure 130/80 04/10/2005 3:20 PM CDT Pulse 64 04/10/2005 3:20 PM CDT Temperature 36.7 C (98 F) 04/10/2005 3:20 PM CDT Respiratory Rate 18 04/10/2005 3:20 PM CDT Oxygen Saturation - - Inhaled Oxygen Concentration - - Weight 103.4 kg (228 lb) 04/10/2005 3:20 PM CDT Height 157.5 cm (5' 2) 04/10/2005 3:20 PM CDT Body Mass Index 41.7 04/10/2005 3:20 PM CDT documented in this encounter Plan of Treatment Not on file documented as of this encounter Visit Diagnoses Not on filedocumented in this encounter Care Teams Circular Head Saw Operator Relationship Specialty [place] [address] [facility] [address] [address] PCP - General Internal Medicine 03/29/22 documented as of this encounter
--- OUTSIDE RECORDS SUMMARY | 2025-01-23 19:52 | XMS_ITS | Referral Summary ---
Author Organization [facility] Address [address] [facility] [place] [address] Care Team Providers Care Internet Database Specialist Name Role Phone Saud Valero MD Primary Care Provider +1 -[phone] Allergies Active Allergy Reactions Criticality Noted Date [...] Unspecified 05/04/2021(Deferred: Martha ent Refused) Tdap 04/30/2015 Social History Tobacco Use Types Packs/Day Years [...] on file Legal Sex Female 9:15 AM COUNCIL ON AGING DIRECTOR Gender Identity Not on file Sexual Orientation Not on file Last Filed Vital Signs Vital Sign Reading Time Taken Comments Blood Pressure 126/75 07/07/2023 4:00 AM COUNCIL ON AGING DIRECTOR Pulse 65 07/07/2023 5:30 AM COUNCIL ON AGING DIRECTOR Temperature 36.2 C (97.2 F) 07/06/2023 8:19 PM COUNCIL ON AGING DIRECTOR Respiratory Rate 16 07/07/2023 4:00 AM COUNCIL ON AGING DIRECTOR Oxygen Saturation 100% 07/07/2023 5:30 AM COUNCIL ON AGING DIRECTOR Inhaled Oxygen Concentration - - Weight 107 kg (236 lb) 06/29/2022 10:04 AM COUNCIL ON AGING DIRECTOR Height 160 cm (5' 3) 04/27/2022 9:25 AM CDT Body Mass Index 41.81 04/27/2022 9:25 AM CDT Plan of Treatment Not on file Procedures Procedure Name Priority Date/Time Associated Diagnosis [...] Saud Valero MD IMG MAMMO PROCEDURES Thao hidalgo Result from Last 3 Months or Most Recently Relevant to Health Maintenance [place] [address] [employer] C[employer] H[employer]/[place] [address] [employer] [place]/[place] [address] Care Teams Internet Database Specialist Relationship Specialty [place] [address] [facility] [address] [place] [address] PCP - General Internal Medicine 11/03/22
[2025-01-23 19:56] VITALS: BP 142/94; PULSE 75; RESP 16; TEMP 36.4; O2SAT 100
== END 2025-01-23 20:05 | disposition home or self-care (01) ==
PROVIDERS: Emergency Provider Nurse Practitioner
DX: T78.40XA Allergy, unspecified, initial encounter (principal)
CPT/HCPCS: 99213; G0463